=== PATIENT | female | born 1975 | race Caucasian/White ===

== ENCOUNTER → 2016-03-31 | Outpatient (CLI) | payer OTHER ==
--- NOTE | 2016-03-31 23:14 | MR ---
EXAMINATION TYPE: MR lumbar wo con DATE OF EXAM: 03/31/2016 8:52 PM COMPARISON: 08/21/2013 HISTORY: Mid/lower back pain, tingling lt arm, rt groin/leg pain T1 and T2 axial and sagittal images of the lumbar spine are submitted. There is no abnormal signal seen within the visualized spinal cord or paraspinal soft tissues. T12-L1: No focal disc herniation or significant disc bulge is evident. No spinal canal stenosis or ne ural foraminal stenosis is present. L1-L2: No focal disc herniation or significant disc bulge is evident. No spinal canal stenosis or puneet ral foraminal stenosis is present. L2-L3: No focal disc herniation or significant disc bulge is evident. No spinal canal stenosis or puneet ral foraminal stenosis is present. L3-L4: No focal disc herniation or significant disc bulge is evident. No spinal canal stenosis or puneet ral foraminal stenosis is present. L4-L5: Broad-based central disc bulging and hypertrophic change of the facets with mild effacement of thecal sac. Mild bilateral foraminal encroachment. L5-S1: No extruded disc fragments. No spinal canal stenosis. IMPRESSION: 1. L4-L5: Broad-based central disc bulging and hypertrophic change of the facets with mild effacement of thecal sac. Mild bilateral foraminal encroachment. EXAMINATION TYPE: MR thoracic spine wo con DATE OF EXAM: 03/31/2016 COMPARISON: 08/21/2013 HISTORY: Mid/lower back pain, tingling lt arm, rt groin/leg pain Standard multiplanar, multisequence MRI departmental protocol Multiplanar, multisequence images of the thoracic were acquired. FINDINGS: Alignment is anatomic. There is loss of disc signal space at T4-T5, T6-T7, T7-T8, and T8-T9. At T4-T5 there is a left paracentral disc protrusion broad-based with mild effacement of thecal sac b ut no spinal cord contact. However, there is mass effect upon the left anterior margin of the spinal cord secondary to the thecal sac compression. Neural foramina remain patent. At T6-T7 there is broad-based disc bulge or small protrusion with mild effacement of thecal sac but n o spinal cord contact. Neural foramina appear to be patent. At T7-T8 there is broad-based central disc protrusion. There is mass effect upon the thecal sac. Ther e does appear to be mild mass effect upon the right anterior spinal cord secondary to the compression of the thecal sac. No cord contact. Remaining levels demonstrate no disc herniation, canal stenosis, or foraminal encroachment. No abnormal signal seen within the visualized thoracic spinal cord. Within the lower cervical spinal cord is an area of abnormal signal at the C6-C7 level which is stable and compatible with previous re ported syrinx. Images are not included on the axial images of the thoracic spine IMPRESSION: 1. Disc protrusion at T4-T5, T6-T7, and T7-T8 mass effect upon the thecal sac. There is a degree of m ass effect upon the spinal cord at T4-T5 and T7-T8 as discussed above but no spinal cord contact. Fin dings at T4-T5 and T7-T8 is progressed from previous exam. 2. Abnormal signal within the lower cervical spinal cord which is not included on the axial images of the thoracic spine. Previous cervical spine MRI demonstrated evidence of a syrinx in this region whi ch could be followed with a MRI as clinically warranted
== END | disposition home or self-care (01) ==
LOC: RADMRIMAIN 19:52
PROVIDERS: ATTEND Psychiatry & Neurology Neurology
DX: M51.26 Other intervertebral disc displacement, lumbar region (principal); M51.24 Other intervertebral disc displacement, thoracic region
CPT/HCPCS: 72146; 72148

== ENCOUNTER 2017-01-29 11:11 | Observation (INO) | payer OTHER ==
[2017-01-29] MEDS ORDERED: KETOROLAC 30 MG/ML 1 ML VIAL IVP STA (11:32)
[2017-01-29] MEDS ORDERED: SODIUM CHLORIDE 0.9% 1,000 ML IV STA ×2 (11:32→15:09)
--- NOTE | 2017-01-29 11:35 | ED ---
SOB HPI - General Chief Complaint: Shortness of Breath Stated Complaint: pili following IV infusion x 3 days Time Seen by Provider: 01/29/17 11:23 Source: patient, family, RN notes reviewed Mode of arrival: ambulatory Limitations: no limitations - History of Present Illness Initial Comments: This is a 41-year-old female presents with complaints of chest heaviness and shortness of breath. She states she's received 3 IV injections of Solu-Medrol her neurologist is using apparently try to rule out MS. She states she started developing left-sided chest pain sharp and heaviness with some radiation to the left shoulder it feels like it is sharp initially gets worse with deep breathing attempts. It feels like someone sitting on her chest she states. She has a cough fevers chills nausea vomiting sweats or other symptoms. Patient has no prior history of heart or lung disease she is a ex-smoker. Patient did state that the pain as well as 6/10 at this time. MD Complaint: shortness of breath, chest pain - Related Data Home Medications Medication Instructions Recorded Confirmed Esomeprazole Magnesium [NexIUM] 40 mg PO DAILY 01/29/17 01/29/17 Morphine Sulfate ER [Ms Contin 30 mg PO Q12HR 01/29/17 01/29/17 30Mg] Polyethylene Glycol 3350 [Miralax] 17 gm PO DAILY PRN 01/29/17 01/29/17 Simvastatin [Zocor] 20 mg PO HS 01/29/17 01/29/17 Zonisamide [Zonegran] 200 mg PO HS 01/29/17 01/29/17 oxyCODONE-APAP 10-325MG [Percocet 1 tab PO BID 01/29/17 01/29/17 10-325 mg] Allergies Allergy/AdvReac Type Severity Reaction Status Date / Time Iodinated Contrast- Oral and Allergy Itching Verified 01/29/17 11:47 IV Dye Review of Systems ROS Statement: Those systems with pertinent positive or pertinent negative responses have been documented in the HPI. ROS Other: All systems not noted in ROS Statement are negative. Past Medical History Past Medical History: No Reported History History of Any Multi-Drug Resistant Organisms: C-DIFF Date of last positivie culture/infection: 2014 Past Surgical History: Breast Surgery, Tonsillectomy Past Psychological History: No Psychological Hx Reported Smoking Status: Former smoker Past Alcohol Use History: None Reported Past Drug Use History: None Reported General Exam - General Exam Comments Initial Comments: This is a well-developed well-nourished awake alert oriented 3 female Limitations: no limitations General appearance: alert, anxious Head exam: Present: atraumatic, normocephalic, normal inspection Eye exam: Present: normal appearance, PERRL, EOMI. Absent: scleral icterus, conjunctival injection, periorbital swelling ENT exam: Present: normal exam, mucous membranes moist Neck exam: Present: normal inspection. Absent: tenderness, meningismus, lymphadenopathy Respiratory exam: Present: normal lung sounds bilaterally. Absent: respiratory distress, wheezes, rales, rhonchi, stridor Cardiovascular Exam: Present: regular rate, normal rhythm, normal heart sounds. Absent: systolic murmur, diastolic murmur, rubs, gallop, clicks GI/Abdominal exam: Present: soft, normal bowel sounds. Absent: distended, tenderness, guarding, rebound, rigid Extremities exam: Present: normal inspection, full ROM, normal capillary refill. Absent: tenderness, pedal edema, joint swelling, calf tenderness Back exam: Present: normal inspection Neurological exam: Present: alert, oriented X3, CN II-XII intact Psychiatric exam: Present: normal affect, normal mood Skin exam: Present: warm, dry, intact, normal color. Absent: rash Course Vital Signs 01/29/17 01/29/17 01/29/17 11:15 12:25 12:26 Temperature 97.7 F Pulse Rate 50 L 42 L Respiratory 18 16 16 Rate Blood Pressure 124/57 O2 Sat by Pulse 100 100 Oximetry 01/29/17 01/29/17 01/29/17 12:52 13:55 14:43 Temperature Pulse Rate 51 L 40 L 50 L Respiratory 16 18 Rate Blood Pressure 133/69 147/71 146/67 O2 Sat by Pulse 100 100 Oximetry 01/29/17 01/29/17 14:48 15:08 Temperature Pulse Rate 55 L 50 L Respiratory 18 18 Rate Blood Pressure 119/62 105/58 O2 Sat by Pulse 99 97 Oximetry Medical Decision Making - Medical Decision Making Patient persisted having retrosternal chest pressure. Nitroglycerin did seem to help. Patient has symptoms consistent with angina. She will be admitted for cardiology consultation. The case will be discussed with Dr. Carlson who is covering Dr. Griffin. - Lab Data Result diagrams: 01/29/17 12:00 01/29/17 12:00 Lab Results 01/29/17 01/29/17 01/29/17 Range/Units 12:00 12:00 12:00 WBC 11.0 H (3.8-10.6) k/uL RBC 4.27 (3.80-5.40) m/uL Hgb 12.8 (11.4-16.0) gm/dL Hct 37.0 (34.0-46.0) % MCV 86.6 (80.0-100.0) fL MCH 29.9 (25.0-35.0) pg MCHC 34.5 (31.0-37.0) g/dL RDW 13.2 (11.5-15.5) % Plt Count 204 (150-450) k/uL Neutrophils % 50 % Lymphocytes % 44 % Monocytes % 5 % Eosinophils % 1 % Basophils % 0 % Neutrophils # 5.5 (1.3-7.7) k/uL Lymphocytes # 4.8 (1.0-4.8) k/uL Monocytes # 0.5 (0-1.0) k/uL Eosinophils # 0.1 (0-0.7) k/uL Basophils # 0.0 (0-0.2) k/uL PT (9.0-12.0) sec INR (<1.2) APTT (22.0-30.0) sec D-Dimer (<0.60) mg/L FEU Sodium 139 (137-145) mmol/L Potassium 3.5 (3.5-5.1) mmol/L Chloride 112 H (98-107) mmol/L Carbon Dioxide 21 L (22-30) mmol/L Anion Gap 6 mmol/L BUN 16 (7-17) mg/dL Creatinine 0.69 (0.52-1.04) mg/dL Est GFR (MDRD) Af Amer >60 (>60 ml/min/1.73 sqM) Est GFR (MDRD) Non-Af >60 (>60 ml/min/1.73 sqM) Glucose 90 (74-99) mg/dL Calcium 8.9 (8.4-10.2) mg/dL Magnesium 1.8 (1.6-2.3) mg/dL Total Bilirubin 0.3 (0.2-1.3) mg/dL AST 32 (14-36) U/L ALT 104 H (9-52) U/L Alkaline Phosphatase 40 (38-126) U/L Total Creatine Kinase 25 L (30-135) U/L CK-MB (CK-2) 0.3 (0.0-2.4) ng/mL CK-MB (CK-2) Rel Index 1.2 Troponin I <0.012 (0.000-0.034) ng/mL NT-Pro-B Natriuret Pep pg/mL Total Protein 5.5 L (6.3-8.2) g/dL Albumin 3.0 L (3.5-5.0) g/dL 01/29/17 01/29/17 Range/Units 12:00 12:00 WBC (3.8-10.6) k/uL RBC (3.80-5.40) m/uL Hgb (11.4-16.0) gm/dL Hct (34.0-46.0) % MCV (80.0-100.0) fL MCH (25.0-35.0) pg MCHC (31.0-37.0) g/dL RDW (11.5-15.5) % Plt Count (150-450) k/uL Neutrophils % % Lymphocytes % % Monocytes % % Eosinophils % % Basophils % % Neutrophils # (1.3-7.7) k/uL Lymphocytes # (1.0-4.8) k/uL Monocytes # (0-1.0) k/uL Eosinophils # (0-0.7) k/uL Basophils # (0-0.2) k/uL PT 12.4 H (9.0-12.0) sec INR 1.2 H (<1.2) APTT 22.5 (22.0-30.0) sec D-Dimer 1.41 H (<0.60) mg/L FEU Sodium (137-145) mmol/L Potassium (3.5-5.1) mmol/L Chloride (98-107) mmol/L Carbon Dioxide (22-30) mmol/L Anion Gap mmol/L BUN (7-17) mg/dL Creatinine (0.52-1.04) mg/dL Est GFR (MDRD) Af Amer (>60 ml/min/1.73 sqM) Est GFR (MDRD) Non-Af (>60 ml/min/1.73 sqM) Glucose (74-99) mg/dL Calcium (8.4-10.2) mg/dL Magnesium (1.6-2.3) mg/dL Total Bilirubin (0.2-1.3) mg/dL AST (14-36) U/L ALT (9-52) U/L Alkaline Phosphatase (38-126) U/L Total Creatine Kinase (30-135) U/L CK-MB (CK-2) (0.0-2.4) ng/mL CK-MB (CK-2) Rel Index Troponin I (0.000-0.034) ng/mL NT-Pro-B Natriuret Pep 546 pg/mL Total Protein (6.3-8.2) g/dL Albumin (3.5-5.0) g/dL - EKG Data -: EKG Interpreted by Me EKG shows normal: sinus rhythm (Sinus bradycardia rate of 40. Ago 122 QRS 90 QT since QTC of 456/[address]-T wave changes seen) - Radiology Data Radiology results: report reviewed (I did review the imaging and reports no acute findings no evidence of PE.), image reviewed Disposition Clinical Impression: Unstable angina, Chest pain Disposition: ADMITTED IP TO THIS [facility] Condition: Stable Referrals: Vahid Griffin DO [Primary Care Provider] - 1-2 days
[2017-01-29] MEDS ORDERED: ASPIRIN 81 MG PO STA (11:36)
[2017-01-29 12:16] LABS: Basophils % (A) 0 %; CH 29.5; CHCM 34.3; Eosinophils # (A) 0.1 k/uL (0-0.7); Eosinophils % (A) 1 %; HDW 2.56; HGB 12.8 gm/dL (11.4-16.0); Luc % (Auto) 1; Lymphocytes # (A) 4.8 k/uL (1.0-4.8); Lymphocytes % (A) 44 %; MCH 29.9 pg (25.0-35.0); MCHC 34.5 g/dL (31.0-37.0); MCV 86.6 fL (80.0-100.0); Mean Platelet Volume 7.3; Monocytes # (A) 0.5 k/uL (0-1.0); Monocytes % (A) 5 %; Neutrophils # (A) 5.5 k/uL (1.3-7.7); Neutrophils % (A) 50 %; RBC 4.27 m/uL (3.80-5.40); RDW 13.2 % (11.5-15.5); WBC (Perox) 10.99
[2017-01-29 12:27] LABS: INR 1.2 (<1.2); Partial Thromboplastin Time 22.5 sec (22.0-30.0); Prothrombin Time 12.4 sec (9.0-12.0)
--- NOTE | 2017-01-29 12:29 | XR ---
EXAMINATION TYPE: XR chest 2V DATE OF EXAM ORDERED: 01/29/2017 HISTORY: difficulty breathing. REFERENCE: Previous study dated 06/16/2010. FINDINGS: The lungs are clear. Pleural spaces are clear. Heart size is normal. IMPRESSION: NORMAL CHEST.
[2017-01-29 12:30] LABS: ALT 104 U/L (9-52); AST 32 U/L (14-36); Alkaline Phosphatase 40 U/L (38-126); Anion Gap 6 mmol/L; Blood Urea Nitrogen 16 mg/dL (7-17); Calcium 8.9 mg/dL (8.4-10.2); Carbon Dioxide 21 mmol/L (22-30); Chloride 112 mmol/L (98-107); Glucose 90 mg/dL (74-99); Magnesium 1.8 mg/dL (1.6-2.3); Non-African American GFR(MDRD) >60 (>60 ml/min/1.73 sqM); Potassium 3.5 mmol/L (3.5-5.1); Sodium 139 mmol/L (137-145); Total Bilirubin 0.3 mg/dL (0.2-1.3); Total Protein 5.5 g/dL (6.3-8.2)
[2017-01-29 12:35] LABS: Creatine Kinase 25 U/L (30-135)
[2017-01-29 12:48] LABS: Creatine Kinase MB 0.3 ng/mL (0.0-2.4); Troponin I <0.012 ng/mL (0.000-0.034)
[2017-01-29] MEDS ORDERED: FAMOTIDINE 20 MG/2 ML VIAL IV STA (13:08)
[2017-01-29] MEDS ORDERED: methylPREDNISolone SOD SUCCI 125 MG/2 ML VIAL IV STA (13:08)
[2017-01-29] MEDS ORDERED: diphenhydrAMINE 50 MG/ML 1 ML VIAL IVP STA (13:08)
[2017-01-29] MEDS ORDERED: RX INFO: IV CONTRAST WAS GIVEN 1 EACH MISC MISCELLANE PRN (13:09)
--- NOTE | 2017-01-29 14:03 | CT ---
EXAMINATION TYPE: CT angio chest DATE OF EXAM: 01/29/2017 1:50 PM COMPARISON: There are small, bilateral pleural effusions, greater on the right than the left. There i s minimal dependent atelectasis within the dependent portions of the lungs. There is no significant axillary, internal mammary, mediastinal or hilar adenopathy. There is no evidence of pulmonary embolus. The aorta is normal in caliber without evidence of dissection. There is no pericardial fluid. The heart is mildly enlarged. Visualized portions of the upper abdomen are normal. There is minimal hypertrophic spondylosis within the spine. HISTORY: 1. This examination is negative for pulmonary embolus. 2. Small, bilateral pleural effusions, greater on the right than the left. 3. Mild cardiomegaly. 4. Mild degenerative change within the spine. CT DLP: mGycm Automated exposure control for dose reduction was used. CONTRAST: CTA scan of the thorax is performed , patient injected with mL of , pulmonary embolism protocol. . FINDINGS: LUNGS: The lungs are grossly clear, there is no concerning parenchymal mass or nodule identified. T here is no pleural effusion or pneumothorax seen. The tracheobronchial tree is patent. MEDIASTINUM: There is satisfactory enhancement of the pulmonary artery and its branches, there is no CT evidence for pulmonary embolism. There are no greater than 1 cm hilar or mediastinal lymph nodes. No pericardial effusion is seen. OTHER: No additional significant abnormality is seen. IMPRESSION:
[2017-01-29] MEDS: NITROGLYCERIN SL TABS 0.4 MG TAB SUBLINGUAL PRN ×2 (14:42→14:48)
[2017-01-29] MEDS ORDERED: NITROGLYCERIN OINT 1 INCH/GM PACKET TOPICAL STA (15:09)
[2017-01-29] MEDS ORDERED: NITROGLYCERIN SL TABS 0.4 MG TAB SUBLINGUAL PRN (15:52)
[2017-01-29] MEDS ORDERED: POLYETHYLENE GLYCOL 3350 17 GM POWD.PACK PO PRN (15:54)
[2017-01-29] MEDS ORDERED: HEPARIN SODIUM,PORCINE 5,000 UNIT/ML 1 ML VIAL IV ONE (15:57)
[2017-01-29] MEDS ORDERED: HEPARIN SODIUM,PORCINE/D5W PMX 25,000 UNIT in DEXTROSE/WATER 1 500ML.BAG IV SCH (16:00)
[2017-01-29] MEDS ORDERED: SODIUM CHLORIDE 0.9% 1,000 ML IV SCH (16:00)
[2017-01-29 16:58] VITALS: BMI 28.9
[2017-01-29] MEDS: MORPHINE SULFATE ER 30 MG TABLET PO SCH (18:32)
[2017-01-29] MEDS: NITROGLYCERIN OINT 1 INCH/GM PACKET TOPICAL SCH (18:34)
[2017-01-29 18:54] LABS: Creatine Kinase 22 U/L (30-135)
[2017-01-29 19:08] LABS: Creatine Kinase MB 0.2 ng/mL (0.0-2.4); Troponin I <0.012 ng/mL (0.000-0.034)
--- NOTE | 2017-01-29 19:14 | HP ---
HISTORY AND PHYSICAL I am covering for Dr. Griffin. DATE OF ADMISSION: 01/29/17 CHIEF COMPLAINT: Chest pain. HISTORY: This 41-year-old woman with a past medical history of multiple medical problems including chronic back pain, history of C diff, history of breast surgery, tonsillectomy, being followed by Dr. Griffin in the outpatient setting complaining of chest pain. The patient had a heavy feeling of the chest, pressure type of pain with like somebody sitting on the chest on the anterior part of the chest and the pain radiated to the left shoulder. Initially it was sharp in character, but subsequently patient had shortness of breath and because of the continued symptoms, patient came to [facility] and was admitted for further evaluation and treatment. The initial troponin was found to be negative and the EKG done showed sinus bradycardia with some ST-T changes. A D-dimer was found to be 1.41. The patient also underwent a CT angiography which showed no pulmonary embolism and small bilateral pleural effusions also noted. Mild DJD of the spine is also noted. There is no history of fever, rigors. No history of headache, loss of consciousness or seizures. PAST MEDICAL HISTORY: History of chronic back pain, history of breast surgery. MEDICATIONS: Prior to admission include: 1. Hydrocodone 10 mg b.i.d. 2. Zonegran 200 mg q.h.s. 3. Zocor 20 mg q.h.s. 4. MiraLAX 17 g daily p.r.n. 5. MS Contin 30 mg p.o. b.i.d. 6. Nexium 40 mg p.o. daily. ALLERGIES: IODINATED CONTRAST DYE. FAMILY HISTORY: History of diabetes and heart disease in the family. SOCIAL HISTORY: Previous history of smoking. No history of alcohol intake. REVIEW OF SYSTEMS: ENT: No diminished vision, no diminished hearing. Cardiovascular as mentioned earlier. Respirations as mentioned earlier. GI no nausea or vomiting. no dysuria or retention. Nervous system: No numbness or weakness. Allergy/Immunology: No asthma or hayfever. Musculoskeletal; as mentioned earlier. Hematology/Oncology: No history of anemia. Endocrine no history of diabetes or hypothyroidism. Constitutional: As mentioned earlier. Dermatology: Negative. Rheumatology: Negative. Psychiatric : As mentioned earlier. PHYSICAL EXAM: Patient is alert, oriented x3. The pulse is 42, blood pressure 109/61, respiratory rate 14, temperature 98 degrees, pulse ox 98% room air. HEENT: Conjunctivae normal. Oral mucosa moist. Neck is no jugular venous distention. No carotid bruit. No lymph node enlargement. Cardiovascular system: S1, S2 muffled. No S3, no S4. Respiratory: Breath sounds diminished in the bases. No rhonchi. No crackles. ABDOMEN: Soft, nontender. No mass palpable. Legs no edema and no swelling. NERVOUS SYSTEM: Higher functions as mentioned. Moves all 4 limbs. No focal motor or sensory deficits. Lymphatics: No lymph nodes palpable in the neck, axillae or groin. Skin no ulcer, rash or bleeding. LABS: WBC 11, hemoglobin 12.8, INR is 1.2, and CO2 is 21 and ALT is 104 and AST is 32 ASSESSMENT: 1. Chest pain possible unstable angina. 2. Sinus bradycardia. 3. Increased WBC. 4. Increased ALT. 5. History of back pain. 6. History of Clostridium difficile colitis. 7. Small bilateral pleural effusion on the CTA. RECOMMENDATIONS AND DISCUSSION: In this 41-year-old woman who presented with multiple complex medical issues, we will monitor the patient closely, continue the current management and symptomatic treatment. Otherwise at this time, I recommend continue the current medications. Rule out myocardial infarction. Unstable angina protocol. Cardiology consultation. Dr. Griffin will follow. Further followup regarding the above-mentioned medical issues as outpatient. Discussed with the patient who understands and agrees. MMODL / IJN: [id number] / MTDD
[2017-01-29 19:57] VITALS: RESP 18
[2017-01-29 20:52] LABS: Appearance,Urine Clear (Clear); Bilirubin,Urine Negative (Negative); Glucose,Urine (UA) Negative (Negative); Ketones,Urine Negative (Negative); Leukocyte Esterase,Urine Negative (Negative); Nitrite,Urine Negative (Negative); PH, Urine 7.5 (5.0-8.0); Protein,Urine Negative (Negative); Specific Gravity,Urine 1.015 (1.001-1.035); UA Billing (MACRO vs. MICRO) CHEM; Urobilinogen,Urine <2.0 mg/dL (<2.0)
[2017-01-29] MEDS ORDERED: ATORVASTATIN 10 MG TAB PO SCH (21:00)
[2017-01-29] MEDS ORDERED: ZONISAMIDE 100 MG CAP PO SCH (21:00)
[2017-01-29] MEDS: oxyCODONE-APAP 10-325MG 1 EACH TAB PO SCH (23:06)
[2017-01-30 01:26] LABS: Creatine Kinase 22 U/L (30-135)
[2017-01-30 01:37] LABS: Creatine Kinase MB <0.2 ng/mL (0.0-2.4); Troponin I <0.012 ng/mL (0.000-0.034)
[2017-01-30] MEDS: NITROGLYCERIN OINT 1 INCH/GM PACKET TOPICAL SCH ×2 (04:06→05:18)
[2017-01-30] MEDS: MORPHINE SULFATE ER 30 MG TABLET PO SCH (05:03)
[2017-01-30 05:52] LABS: Basophils % (A) 0 %; CH 29.3; CHCM 33.6; Eosinophils % (A) 0 %; HCT 35.4 % (34.0-46.0); HDW 2.54; HGB 11.7 gm/dL (11.4-16.0); Luc # (Auto) 0.11; Luc % (Auto) 1; Lymphocytes # (A) 2.9 k/uL (1.0-4.8); Lymphocytes % (A) 22 %; MCHC 33.1 g/dL (31.0-37.0); MCV 87.6 fL (80.0-100.0); Mean Platelet Volume 7.3; Monocytes # (A) 0.9 k/uL (0-1.0); Monocytes % (A) 7 %; Neutrophils # (A) 9.3 k/uL (1.3-7.7); Neutrophils % (A) 70 %; RBC 4.04 m/uL (3.80-5.40); RDW 13.2 % (11.5-15.5); WBC 13.2 k/uL (3.8-10.6); WBC (Perox) 13.57
[2017-01-30 06:40] LABS: Anion Gap 5 mmol/L; Blood Urea Nitrogen 13 mg/dL (7-17); Calcium 8.7 mg/dL (8.4-10.2); Carbon Dioxide 24 mmol/L (22-30); Chloride 110 mmol/L (98-107); Cholesterol 136 mg/dL (<200); Glucose 100 mg/dL (74-99); HDL Cholesterol 55 mg/dL (40-60); Non-African American GFR(MDRD) >60 (>60 ml/min/1.73 sqM); Potassium 3.7 mmol/L (3.5-5.1); Sodium 139 mmol/L (137-145)
[2017-01-30] MEDS ORDERED: PANTOPRAZOLE 40 MG TABLET PO SCH (07:30)
[2017-01-30] MEDS ORDERED: ASPIRIN 325 MG TAB PO SCH (09:00)
--- NOTE | 2017-01-30 09:35 | XR ---
EXAMINATION TYPE: XR chest 1V portable DATE OF EXAM: 01/30/2017 COMPARISON: 01/29/2017 HISTORY: Chest pain TECHNIQUE: Single frontal view of the chest is obtained. FINDINGS: No focal infiltrate is identified. Blunting of the right costophrenic angle is felt to reflect small effusion. The cardiac silhouette size is within normal limits. The osseous structures are intact. IMPRESSION: 1. Small right-sided effusion suspected.
--- NOTE | 2017-01-30 09:53 | P.PN ---
Subjective Progress Note Date: 01/30/17 41 year old female who presented to the emergency room on 01/29/2017 with a chief complaint of chest pain. The patient's EKG completed in the emergency room showed sinus bradycardia with a rate in the 40s. Her d-dimer was elevated at 1.41. She underwent a CT of the chest which was negative for pulmonary embolism but did show small bilateral pleural effusions. The patient was seen and examined at the bedside on rounds with Dr. Griffin. She states she has been undergoing workup for possible MS and has had high-dose steroids for the last 3 days per her neurologist. She started having chest pain that she describes as "squeezing" on the left side of her chest that wraps around to the left side of her back. The pain is not reproducible upon palpation. She states there is nothing that makes it better or worse. She states she is unable to lay down because the pain intensifies when she is supine. She states that she feels like she is unable to take a deep breath. She remains on 2 L nasal cannula and is maintaining oxygen saturation greater than 92%. The patient remains bradycardic with a rate ranging from 38-56 overnight. Troponins were negative 3. Lipid panel reveals triglycerides of 66 , cholesterol 136, LDL 68, and HDL 55. An echo was completed and results are currently pending. Consultations have been placed to cardiology for further workup. Objective - Vital Signs Vital signs: Vital Signs Temp 97.5 F L 01/30/17 07:45 Pulse 56 L 01/30/17 07:45 Resp 18 01/30/17 07:45 BP 140/68 01/30/17 07:45 Pulse Ox 100 01/30/17 09:25 Intake & Output 01/29/17 01/30/17 01/30/17 18:59 06:59 18:59 Intake Total 1080 Balance 1080 Weight 76.4 kg Intake: Intake, IV Titration 480 Amount Heparin Sodium,Porcine/ 240 D5w Pmx 25,000 unit In Dextrose/Water 1 500ml. bag @ 12 UNITS/KG/HR 17. 96 mls/hr IV .Q24H JASSON Rx #:[id number] Sodium Chloride 0.9% 1, 240 000 ml @ 20 mls/hr IV . Q24H JASSON Rx#:[id number] Oral 600 Other: Voiding Method Toilet Toilet # Voids 2 - Exam GENERAL: This is a 41-year-old female in no apparent distress at the time of examination. Pleasant and cooperative. HEENT: Head is atraumatic, normocephalic. Pupils are equal, round, and reactive to light. Sclerae anicteric. Conjunctivae are clear. Mucus membranes of the mouth are moist. Neck is supple. RESPIRATORY: Clear to ausculation. No wheezes, rales, or rhonchi. No use of accessory muscles. Patient maintaining oxygen saturation greater than 92% on 2 L nasal cannula. No chest wall tenderness is noted on palpation or with deep breathing. CARDIOVASCULAR: Regular rate and rhythm. Bradycardic. S1 and S2 noted. No systolic or diastolic murmur auscultated. No JVD noted. No S3 or S4 noted. GASTROINTESTINAL: No distention noted. Abdomen soft and round. Normal active bowel sounds auscultated X 4 quadrants. No pain or tenderness noted upon palpation. INTEGUMENTARY: No cyanosis. No jaundice. No rashes noted. No cellulitis noted. EXTREMITIES: 2+ peripheral pulses. No evidence of peripheral edema. No calf tenderness noted. NEUROLOGIC: Cranial nerves II-XII intact. PSYCHIATRIC: Awake, alert, and oriented X 3. Appropriate affect. Intact judgement and insight. - Labs CBC & Chem 7: 01/30/17 05:28 01/30/17 05:28 Labs: Abnormal Lab Results - Last 24 Hours (Table) 01/29/17 01/29/17 01/29/17 Range/Units 12:00 12:00 12:00 WBC 11.0 H (3.8-10.6) k/uL Neutrophils # (1.3-7.7) k/uL PT (9.0-12.0) sec INR (<1.2) APTT (22.0-30.0) sec D-Dimer (<0.60) mg/L FEU Chloride 112 H (98-107) mmol/L Carbon Dioxide 21 L (22-30) mmol/L Glucose (74-99) mg/dL ALT 104 H (9-52) U/L Total Creatine Kinase 25 L (30-135) U/L Total Protein 5.5 L (6.3-8.2) g/dL Albumin 3.0 L (3.5-5.0) g/dL 01/29/17 01/29/17 01/30/17 Range/Units 12:00 18:24 00:44 WBC (3.8-10.6) k/uL Neutrophils # (1.3-7.7) k/uL PT 12.4 H (9.0-12.0) sec INR 1.2 H (<1.2) APTT (22.0-30.0) sec D-Dimer 1.41 H (<0.60) mg/L FEU Chloride (98-107) mmol/L Carbon Dioxide (22-30) mmol/L Glucose (74-99) mg/dL ALT (9-52) U/L Total Creatine Kinase 22 L 22 L (30-135) U/L Total Protein (6.3-8.2) g/dL Albumin (3.5-5.0) g/dL 01/30/17 01/30/17 01/30/17 Range/Units 00:44 05:28 05:28 WBC 13.2 H (3.8-10.6) k/uL Neutrophils # 9.3 H (1.3-7.7) k/uL PT (9.0-12.0) sec INR (<1.2) APTT 51.7 H (22.0-30.0) sec D-Dimer (<0.60) mg/L FEU Chloride 110 H (98-107) mmol/L Carbon Dioxide (22-30) mmol/L Glucose 100 H (74-99) mg/dL ALT (9-52) U/L Total Creatine Kinase (30-135) U/L Total Protein (6.3-8.2) g/dL Albumin (3.5-5.0) g/dL Assessment and Plan Plan: ASSESSMENT: Chest pain, present on admission, troponins negative 3, possible unstable angina Elevated d-dimer, CT chest negative for pulmonary emboli but noted to have small bilateral pleural effusions Sinus bradycardia, asymptomatic Chronic back pain with recent high-dose steroid infusions for pain control and possible multiple sclerosis History of ulcerative colitis History of Clostridium difficile History of tobacco abuse, in remission, patient quit smoking cigarettes in 2010 PLAN: -Await further recommendations from cardiology -Await echo results -Monitor heart rate and blood pressure -Monitor telemetry -Continue heparin drip -Wean oxygen as tolerated -Home meds as appropriate -Monitor labs -GI prophylaxis: Protonix 40 mg by mouth daily -DVT prophylaxis: Patient currently on heparin drip -Discharge planning: Patient to return home when stable Nurse practitioner note has been reviewed by physician. Signing provider agrees with the documented findings, assessment, and plan of care.
--- NOTE | 2017-01-30 11:21 | ECHOF ---
Referral Reason:chest pain MEASUREMENTS -------- HEIGHT: 162.6 cm WEIGHT: 76.2 kg BP: 100/56 RVIDd: 3.0 cm (< 3.3) IVSd: 1.0 cm (0.6 - 1.1) LVIDd: 4.1 cm (3.9 - 5.3) LVPWd: 0.9 cm (0.6 - 1.1) IVSs: 1.2 cm LVIDs: 2.9 cm LVPWs: 1.4 cm LA Diam: 3.2 cm (2.7 - 3.8) LAESV Index (A-L): 24.96 ml/m Ao Diam: 3.0 cm (2.0 - 3.7) AV Cusp: 2.2 cm (1.5 - 2.6) MV EXCURSION: 17.484 mm (> 18.000) MV EF SLOPE: 212 mm/s (70 - 150) EPSS: 0.2 cm MV E Moustapha: 1.27 m/s MV DecT: 177 ms MV A Moustapha: 0.74 m/s MV E/A Ratio: 1.72 RAP: 5.00 mmHg RVSP: 23.28 mmHg FINDINGS -------- Resting bradycardia (HR<60bpm). This was a technically good study. The left ventricular size is normal. Left ventricular wall thickness is normal. Overall left vent ricular systolic function is normal with, an EF between 60 - 65 %. The right ventricle is normal in size. Normal LA size by volume 22+/-6 ml/m2. The right atrium is normal in size. The aortic valve is trileaflet and appears structurally normal. Mild mitral annular calcification present. There is trace mitral regurgitation. Mild tricuspid regurgitation present. Right ventricular systolic pressure is normal at < 35 mmHg. Trace/mild (physiologic) pulmonic regurgitation. The aortic root size is normal. The inferior vena cava is dilated with poor inspiratory collapse which is consistent with estimated r ight atrial pressure of 15 mmHg. There is no pericardial effusion. CONCLUSIONS -------- 1. Resting bradycardia (HR<60bpm). 2. This was a technically good study. 3. The left ventricular size is normal. 4. Left ventricular wall thickness is normal. 5. Overall left ventricular systolic function is normal with, an EF between 60 - 65 %. 6. The right ventricle is normal in size. 7. Normal LA size by volume 22+/-6 ml/m2. 8. The right atrium is normal in size. 9. The aortic valve is trileaflet and appears structurally normal. 10. Mild mitral annular calcification present. 11. There is trace mitral regurgitation. 12. Mild tricuspid regurgitation present. 13. Right ventricular systolic pressure is normal at < 35 mmHg. 14. Trace/mild (physiologic) pulmonic regurgitation. 15. The aortic root size is normal. 16. The inferior vena cava is dilated with poor inspiratory collapse which is consistent with estimat ed right atrial pressure of 15 mmHg. 17. There is no pericardial effusion. HOME CARE ADMINISTRATOR: Arielle Hardwick RDCS
[2017-01-30] MEDS: oxyCODONE-APAP 10-325MG 1 EACH TAB PO SCH (11:24)
--- NOTE | 2017-01-30 11:43 | ECHOS ---
STRESS ECHOCARDIOGRAM DATE OF SERVICE: 01/30/2017 INDICATIONS: MEDICATIONS:: Oxycodone, simvastatin, morphine, esomeprazole. BASELINE HEART RATE: 67 BASELINE BLOOD PRESSURE: 117/68 MAXIMUM HEART RATE: 151 MAXIMUM BLOOD PRESSURE: 154/46 85% MPHR: 154 100% MPHR: 181 METS: 11.8 MAXIMUM STAGE REACHED: IV TOTAL EXERCISE TIME: 10 minutes CLINICAL INFORMATION: Patient was exercised for a total period of 10 minutes. The peak heart rate of 151 was achieved, maximum blood pressure of 154/46 mmHg was noted. Her resting EKG shows normal sinus rhythm with normal IN interval and QRS duration and normal ST-T waves. No ST-segment depression suggestive of ischemia was noted. The baseline echocardiographic images reveal normal left ventricular chamber size with normal left ventricular systolic function. In the immediate postexercise period, normal increase in the wall thickness and contractility is noted. FINAL IMPRESSION: This stress echocardiographic study is negative for stress-induced ischemia. The patient's exercise tolerance is normal. No dysrhythmias are noted. MMODL / IJN: [id number] /
[2017-01-30 12:13] VITALS: BP 119/57; PULSE 58; TEMP 98.2
--- NOTE | 2017-01-30 13:37 | P.DS ---
Providers Date of admission: 01/29/17 15:52 Expected date of discharge: 01/30/17 Attending physician: Vahid Griffin Consults: 01/29/17 15:52 Consult Physician Urgent Consulting Provider: Ian Calderon Consult Reason/Comments: Chest pain Do you want consulting provider notified?: Yes Primary care physician: Vahid [facility] Course: 41 year old female who presented to the emergency room on 01/29/2017 with a chief complaint of chest pain. The patient's EKG completed in the emergency room showed sinus bradycardia with a rate in the 40s. Her d-dimer was elevated at 1.41. She underwent a CT of the chest which was negative for pulmonary embolism but did show small bilateral pleural effusions. The patient was seen and examined at the bedside on rounds with Dr. Griffin. She states she has been undergoing workup for possible MS and has had high-dose steroids for the last 3 days per her neurologist. She started having chest pain that she describes as "squeezing" on the left side of her chest that wraps around to the left side of her back. The pain is not reproducible upon palpation. She states there is nothing that makes it better or worse. She states she is unable to lay down because the pain intensifies when she is supine. She states that she feels like she is unable to take a deep breath. She remains on 2 L nasal cannula and is maintaining oxygen saturation greater than 92%. The patient remains bradycardic with a rate ranging from 38-56 overnight. Troponins were negative 3. Lipid panel reveals triglycerides of 66 , cholesterol 136, LDL 68, and HDL 55. An echo was completed which revealed EF 60-65%, trace mitral regurgitation, mild tricuspid regurgitation. She underwent stress testing today which was found to be negative per cardiology PSYCHIATRIC ARNP, Tammie Wagner. The patient is stable for DC and may follow up with Dr. Griffin outpatient. No need for cardiology follow up per LANDEN Cho DISCHARGE DIAGNOSIS Chest pain, present on admission, troponins negative 3, stress testing negative , Echo shows EF 60-65%, trace mitral regurgitation, mild tricuspid regurgitation Elevated d-dimer, CT chest negative for pulmonary emboli but noted to have small bilateral pleural effusions Sinus bradycardia, asymptomatic, improving Chronic back pain with recent high-dose steroid infusions for pain control and possible multiple sclerosis History of ulcerative colitis History of Clostridium difficile History of tobacco abuse, in remission, patient quit smoking cigarettes in 2010 Nurse practitioner note has been reviewed by physician. Signing provider agrees with the documented findings, assessment, and plan of care. Patient Condition at Discharge: Stable Plan - Discharge Summary New Discharge Prescriptions: Continue oxyCODONE-APAP 10-325MG [Percocet 10-325 mg] 1 tab PO BID Zonisamide [Zonegran] 200 mg PO HS Simvastatin [Zocor] 20 mg PO HS Morphine Sulfate ER [Ms Contin] 30 mg PO Q12HR Esomeprazole Magnesium [NexIUM] 40 mg PO DAILY Polyethylene Glycol 3350 [Miralax] 17 gm PO DAILY PRN PRN Reason: Constipation Discharge Medication List Esomeprazole Magnesium [NexIUM] 40 mg PO DAILY 01/29/17 [History] Morphine Sulfate ER [Ms Contin] 30 mg PO Q12HR 01/29/17 [History] Polyethylene Glycol 3350 [Miralax] 17 gm PO DAILY PRN 01/29/17 [History] Simvastatin [Zocor] 20 mg PO HS 01/29/17 [History] Zonisamide [Zonegran] 200 mg PO HS 01/29/17 [History] oxyCODONE-APAP 10-325MG [Percocet 10-325 mg] 1 tab PO BID 01/29/17 [History] Follow up Appointment(s)/Referral(s): Vahid Griffni DO [Primary Care Provider] - 1-2 days Discharge Disposition: HOME SELF-CARE
--- NOTE | 2017-01-30 13:42 | P.CRDCN ---
History of Present Illness Consult date: 01/30/17 History of present illness: This is a 41-year-old female patient past medical history significant for high cholesterol. She also suffers from chronic thoracic back pain and is currently being evaluated by a neurologist to rule out MS. She recently underwent a three-day infusion of steroids Monday, and Monday of last week. After the third day she developed heavy pressure type chest pain on the left side of the chest that radiated into the left shoulder, arm and flank/ thoracic area. She says this is associated with dizziness and shortness of breath. The shortness of breath is worse when she lays flat and she has been requiring sitting up on multiple pillows. The pain is worse when she lays flat as well. If she sits up the pain almost entirely goes away except for in the flank region. At the time of my exam she is seen sitting up in bed in no acute distress. She denies symptoms of chest pain, shortness of breath, dizziness, palpitations, nausea or vomiting. EKG reveals sinus bradycardia with nonspecific flattened T-wave abnormalities in inferior leads with a Q-wave. There is no old for comparison. Cardiac enzymes negative x3. D-dimer 1.41 with negative CTA for PE. Current cardiac medications include simvastatin 20 mg daily. Review of Systems CONSTITUTIONAL: Denies fever. Denies chills. EYES: Denies blurred vision. Denies vision changes. Denies eye pain. EARS, NOSE, MOUTH & THROAT: Denies headache. Denies sore throat. Denies ear pain. CARDIOVASCULAR: Complains of one episode of chest pain with shortness of breath and dizziness, resolved. Denies orthopnea. Denies PND. Denies palpitations. RESPIRATORY: Denies cough. GASTROINTESTINAL: Denies abdominal pain. Denies diarrhea. Denies constipation. Denies nausea. Denies vomiting. MUSCULOSKELETAL: Denies myalgias. INTEGUMENTARY: Denies pruitis. Denies rash. NEUROLOGIC: Denies numbness. Denies tingling. Denies weakness. PSYCHIATRIC: Denies anxiety. Denies depression. ENDOCRINE: Denies fatigue. Denies weight change. Denies polydipsia. Denies polyurina. GENITOURINARY: Denies burning, hematuria or urgency with micturation. HEMATOLOGIC: Denies history of anemia. Denies bleeding. Past Medical History Past Medical History: No Reported History Additional Past Medical History / Comment(s): chronic back pain- pt recieving infusions and rule out MS. History of Any Multi-Drug Resistant Organisms: C-DIFF Date of last positivie culture/infection: 2014 MDRO Source:: stool Past Surgical History: Breast Surgery, Tonsillectomy Additional Past Surgical History / Comment(s): lumpectomy Past Anesthesia/Blood Transfusion Reactions: No Reported Reaction Past Psychological History: No Psychological Hx Reported Smoking Status: Former smoker Past Alcohol Use History: None Reported Additional Past Alcohol Use History / Comment(s): stopped smoking in 2010. pt states she was smoking half a pack to a pack a day. Past Drug Use History: None Reported - Past Family History Father Family Medical History: Diabetes Mellitus Additional Family Medical History / Comment(s): heart disease. at 22 from car accident. Mother Family Medical History: No Reported History Medications and Allergies Home Medications Medication Instructions Recorded Confirmed Type Esomeprazole Magnesium [NexIUM] 40 mg PO DAILY 01/29/17 01/29/17 History Morphine Sulfate ER [Ms Contin 30 mg PO Q12HR 01/29/17 01/29/17 History 30Mg] Polyethylene Glycol 3350 [Miralax] 17 gm PO DAILY PRN 01/29/17 01/29/17 History Simvastatin [Zocor] 20 mg PO HS 01/29/17 01/29/17 History Zonisamide [Zonegran] 200 mg PO HS 01/29/17 01/29/17 History oxyCODONE-APAP 10-325MG [Percocet 1 tab PO BID 01/29/17 01/29/17 History 10-325 mg] Allergies Allergy/AdvReac Type Severity Reaction Status Date / Time Iodinated Contrast- Oral and Allergy Itching Verified 01/29/17 11:47 IV Dye Physical Exam Vitals: Vital Signs Temp Pulse Pulse Resp BP BP BP 01/30/17 07:45 97.5 F L 56 L 18 140/68 01/30/17 04:00 97.9 F 40 L 18 100/56 01/30/17 00:00 40 L 18 01/29/17 23:42 97.9 F 49 L 18 83/47 01/29/17 20:00 52 L 18 01/29/17 19:55 97.9 F 52 L 18 105/55 01/29/17 17:05 42 L 14 01/29/17 16:35 98.0 F 42 L 14 109/61 01/29/17 16:11 98 F 52 L 20 121/58 01/29/17 15:08 50 L 18 105/58 01/29/17 14:48 55 L 18 119/62 01/29/17 14:43 50 L 146/67 01/29/17 13:55 40 L 18 147/71 01/29/17 12:52 51 L 16 133/69 01/29/17 12:26 16 01/29/17 12:25 42 L 16 01/29/17 11:15 97.7 F 50 L 18 124/57 Pulse Ox 01/30/17 07:45 100 01/30/17 04:00 98 01/30/17 00:00 01/29/17 23:42 98 01/29/17 20:00 01/29/17 19:55 97 01/29/17 17:05 01/29/17 16:35 99 01/29/17 16:11 97 01/29/17 15:08 97 01/29/17 14:48 99 01/29/17 14:43 01/29/17 13:55 100 01/29/17 12:52 100 01/29/17 12:26 01/29/17 12:25 100 01/29/17 11:15 100 Intake and Output 01/29/17 01/30/17 01/30/17 22:59 06:59 14:59 Intake Total 1080 Balance 1080 Intake: Intake, IV Titration 480 Amount Heparin Sodium,Porcine/ 240 D5w Pmx 25,000 unit In Dextrose/Water 1 500ml. bag @ 12 UNITS/KG/HR 17. 96 mls/hr IV .Q24H JASSON Rx #:[id number] Sodium Chloride 0.9% 1, 240 000 ml @ 20 mls/hr IV . Q24H JASSON Rx#:[id number] Oral 600 Other: Voiding Method Toilet Toilet # Voids 2 Weight 76.4 kg GENERAL: This is a 41-year-old female in no apparent distress at the time of my examination. HEENT: Head is atraumatic, normocephalic. Pupils are equal, round. Sclerae anicteric. Conjunctivae are clear. Mucous membranes of the mouth are moist. Neck is supple. There is no jugular venous distention. No carotid bruit is heard. LUNGS: Clear to auscultation no wheezes, rales or rhonchi. No chest wall tenderness is noted on palpation or with deep breathing. HEART: Regular rate and rhythm without murmurs, rubs or gallops. S1 and S2 heard. ABDOMEN: Soft, nontender. Bowel sounds are heard. No organomegaly noted. EXTREMITIES: 2+ peripheral pulses with no evidence of peripheral edema and no calf tenderness noted. NEUROLOGIC: Patient is awake, alert and oriented x3. Results 01/30/17 05:28 01/30/17 05:28 Cardiac Enzymes 01/29/17 01/29/17 01/29/17 Range/Units 12:00 12:00 18:24 AST 32 (14-36) U/L CK-MB (CK-2) 0.3 0.2 (0.0-2.4) ng/mL Troponin I <0.012 <0.012 (0.000-0.034) ng/mL 01/30/17 Range/Units 00:44 AST (14-36) U/L CK-MB (CK-2) <0.2 (0.0-2.4) ng/mL Troponin I <0.012 (0.000-0.034) ng/mL Coagulation 01/29/17 01/30/17 Range/Units 12:00 00:44 PT 12.4 H (9.0-12.0) sec APTT 22.5 51.7 H (22.0-30.0) sec Lipids 01/30/17 Range/Units 05:28 Triglycerides 66 (<150) mg/dL Cholesterol 136 (<200) mg/dL HDL Cholesterol 55 (40-60) mg/dL CBC 01/29/17 01/30/17 Range/Units 12:00 05:28 WBC 11.0 H 13.2 H (3.8-10.6) k/uL RBC 4.27 4.04 (3.80-5.40) m/uL Hgb 12.8 11.7 (11.4-16.0) gm/dL Hct 37.0 35.4 (34.0-46.0) % Plt Count 204 219 (150-450) k/uL Comprehensive Metabolic Panel 01/29/17 01/30/17 Range/Units 12:00 05:28 Sodium 139 139 (137-145) mmol/L Potassium 3.5 3.7 (3.5-5.1) mmol/L Chloride 112 H 110 H (98-107) mmol/L Carbon Dioxide 21 L 24 (22-30) mmol/L BUN 16 13 (7-17) mg/dL Creatinine 0.69 0.60 (0.52-1.04) mg/dL Glucose 90 100 H (74-99) mg/dL Calcium 8.9 8.7 (8.4-10.2) mg/dL AST 32 (14-36) U/L ALT 104 H (9-52) U/L Alkaline Phosphatase 40 (38-126) U/L Total Protein 5.5 L (6.3-8.2) g/dL Albumin 3.0 L (3.5-5.0) g/dL Current Medications Generic Name Dose Route Start Last Admin Trade Name Freq PRN Reason Stop Dose Admin Aspirin 325 mg 01/30/17 09:00 Aspirin PO DAILY [facility] Atorvastatin Calcium 10 mg 01/29/17 21:00 01/29/17 20:51 Lipitor PO 10 mg HS JASSON Administration Sodium Chloride 1,000 mls @ 20 mls/hr 01/29/17 16:00 01/29/17 16:06 Saline 0.9% IV 20 mls/hr .Q24H JASSON Administration Heparin Sodium/Dextrose 25,000 500 mls @ 17.96 mls/hr 01/29/17 16:00 16:07 unit/ IV Solution IV 12 units/kg/hr .Q24H JASSON 17.96 mls/hr Protocol Administration 12 UNITS/KG/HR Miscellaneous Information 1 each 01/29/17 13:09 Rx Info: Iv Contrast Was Given MISCELLANE 01/31/17 13:09 DAILY PRN Per Protocol Morphine Sulfate 30 mg 01/29/17 19:00 01/30/17 05:03 Ms Contin PO 30 mg 0500,1700 JASSON Administration Nitroglycerin 0.4 mg 01/29/17 14:33 01/29/17 14:48 Nitrostat SUBLINGUAL 0.4 mg Q5M PRN Administration Chest Pain Nitroglycerin 1 inch 01/29/17 18:00 01/30/17 05:18 Nitro-Bid Oint TOPICAL 1 inch Q6HR JASSON Administration Oxycodone/Acetaminophen 1 each 01/29/17 19:00 01/29/17 23:06 Percocet 10-325 PO 1 each 0500,1700 JASSON Administration Pantoprazole Sodium 40 mg 01/30/17 07:30 Protonix PO AC-BRKFST JASSON Polyethylene Glycol 17 gm 01/29/17 15:54 Miralax PO DAILY PRN Constipation Zonisamide 200 mg 01/29/17 21:00 01/29/17 20:51 Zonegran PO 200 mg HS JASSON Administration Intake and Output 01/29/17 01/30/17 01/30/17 22:59 06:59 14:59 Intake Total 1080 Balance 1080 Intake: Intake, IV Titration 480 Amount Heparin Sodium,Porcine/ 240 D5w Pmx 25,000 unit In Dextrose/Water 1 500ml. bag @ 12 UNITS/KG/HR 17. 96 mls/hr IV .Q24H JASSON Rx #:[id number] Sodium Chloride 0.9% 1, 240 000 ml @ 20 mls/hr IV . Q24H JASSON Rx#:[id number] Oral 600 Other: Voiding Method Toilet Toilet # Voids 2 Weight 76.4 kg 01/30/17 05:28 01/30/17 05:28 Assessment and Plan Assessment: ASSESSMENT 1. Chest pain, atypical for acute coronary syndrome with risk factor of hyperlipidemia. 2. Hyperlipidemia PLAN Obtain 2D echocardiogram and doppler study to evaluate cardiac structure and function. Perform stress echocardiogram to evaluate for ischemia. If this diagnostic testing is negative, from a cardiac perspective, she is stable for discharge home to follow up with PCP. Thank you kindly for this consultation. Nurse Practitioner note has been reviewed, I agree with a documented findings and plan of care. Patient was seen and examined.
[2017-01-31] MEDS ORDERED: ASPIRIN 81 MG PO SCH (09:00)
== END 2017-01-30 14:00 | disposition home or self-care (01) ==
LOC: EC 11:11 → INTOOBSV 15:52 → 3OBS 15:52
PROVIDERS: ADMIT Family Medicine; ATTEND Family Medicine
DX: R07.9 Chest pain, unspecified (principal); J90 Pleural effusion, not elsewhere classified; R79.89 Other specified abnormal findings of blood chemistry; R74.0 Nonspecific elevation of levels of transaminase and lactic acid dehydrogenase [LDH]; R00.1 Bradycardia, unspecified; G89.29 Other chronic pain; M54.6 Pain in thoracic spine; E78.5 Hyperlipidemia, unspecified; K51.90 Ulcerative colitis, unspecified, without complications; Z79.891 Long term (current) use of opiate analgesic; Z79.52 Long term (current) use of systemic steroids; Z79.899 Other long term (current) drug therapy; Z88.5 Allergy status to narcotic agent; Z87.891 Personal history of nicotine dependence; Z86.19 Personal history of other infectious and parasitic diseases; Z82.49 Family history of ischemic heart disease and other diseases of the circulatory system
CPT/HCPCS: 96375 ×5; 96361 ×5; 96376 ×2; 96365 ×2; 99285 ×2; 96366 ×2; 36415; 94760; 93005; 93017; 93306; 93350; 85379; 84439; 83880; 80061; 80053; 80048; 82550 ×2; 82553 ×2; 83735; 84443; 84484 ×2; 85025 ×2; 85610; 85730 ×2; 81003; 71010; 71020; 71275; G0378 ×2; J1200; J1644 ×2; J2930; Q9967; J1885

== ENCOUNTER → 2017-02-08 | Outpatient (CLI) | payer OTHER ==
--- NOTE | 2017-02-08 23:43 | MR ---
EXAMINATION TYPE: MR brain wo/w jewel moni DATE OF EXAM: 02/08/2017 COMPARISON: 12/05/2015 brain HISTORY: Headaches, dizziness, neck pain, white matter changes, MS protocol TECHNIQUE: Multiplanar, multisequence images of the brain and brainstem is performed without and with IV contras t, utilizing 7.5 mL intravenous Gadavist . FINDINGS: Ventricles have normal size. There is no mass effect nor midline shift. There is no sign of intracranial hemorrhage. Chiang and white matter structures have fairly normal signal pattern. There i s no evidence of cerebral edema. Contrast images of the brain show no pathologic enhancement. There i s a single 3 mm focus of increased signal at the chiang-white matter junction right parietal lobe. The cervical vertebra have normal spacing and alignment. Posterior elements appear intact. Cervical s tonya cord has fairly normal signal pattern. There is a thin linear area of increased signal in the c ervical cord at C6-7 level that is a very tiny syrinx. This only measures up to 2 mm in diameter. I s ee no mass of the cervical spinal cord. There is a moderate posterior disc herniation at C4-5 and to the spinal canal. There is developmental ly adequate canal and no spinal stenosis. There is a small posterior disc bulge at C6-7 and C7-T1. I do not see evidence of demyelinating disease in the cervical spinal cord. IMPRESSION: There is a moderate posterior disc herniation at C4-5 but no significant impingement on t he spinal cord. There is developmentally adequate spinal canal. Small syrinx in the cervical cord at C6-C7 level. Single small focus of increased signal in the right parietal lobe chiang-white matter junction. I overa ll have a very low suspicion of demyelinating disease. Brain appears unchanged compared to old exam.
== END | disposition home or self-care (01) ==
LOC: RADMRIMAIN 19:35
PROVIDERS: ATTEND Psychiatry & Neurology Neurology
DX: M50.221 Other cervical disc displacement at C4-C5 level (principal); R90.82 White matter disease, unspecified; Z91.041 Radiographic dye allergy status
CPT/HCPCS: 70553; 72141; A9581

== ENCOUNTER → 2017-07-26 | Outpatient (CLI) | payer OTHER ==
[2017-07-26 08:54] LABS: Basophils % (A) 0 %; Eosinophils # (A) 0.1 k/uL (0-0.7); Eosinophils % (A) 2 %; HCT 38.8 % (34.0-46.0); HGB 13.2 gm/dL (11.4-16.0); Lymphocytes # (A) 2.7 k/uL (1.0-4.8); Lymphocytes % (A) 39 %; MCH 28.9 pg (25.0-35.0); MCHC 34.2 g/dL (31.0-37.0); MCV 84.7 fL (80.0-100.0); Monocytes # (A) 0.4 k/uL (0-1.0); Monocytes % (A) 5 %; Neutrophils # (A) 3.6 k/uL (1.3-7.7); Neutrophils % (A) 52 %; Platelet Count 280 k/uL (150-450); RBC 4.57 m/uL (3.80-5.40); WBC 6.9 k/uL (3.8-10.6)
[2017-07-26 11:02] LABS: Erythrocyte Sedimentation Rate 2 mm/hr (0-20)
[2017-07-26 17:40] LABS: Rheumatoid Factor 4 IU/mL (0-15)
[2017-07-26 18:11] LABS: Anti-DNA, DS unit <1.0 IU/mL; DNA Double-Stranded NEGATIVE (NEGATIVE)
[2017-07-27 13:03] LABS: APTT 35 Sec(s) (<43); Dilute Russell Viper Venom 36 Sec(s) (<44)
== END | disposition home or self-care (01) ==
LOC: LABWHC1 08:29
PROVIDERS: ATTEND Family Medicine
DX: R21 Rash and other nonspecific skin eruption (principal); M35.3 Polymyalgia rheumatica; M06.9 Rheumatoid arthritis, unspecified
CPT/HCPCS: 36415; 85025; 85613; 85652; 85730; 86038; 86140; 86225; 86431

== ENCOUNTER → 2017-08-29 | Outpatient (CLI) | payer OTHER | END | disposition home or self-care (01) | LOC: LABPAT 08:16 | PROVIDERS: ATTEND Nurse Practitioner Acute Care | DX: Z01.818 Encounter for other preprocedural examination (principal) | CPT/HCPCS: 93005 ==

== ENCOUNTER → 2017-11-14 | Outpatient (CLI) | payer OTHER ==
--- NOTE | 2017-11-15 11:54 | MR ---
MR thoracic spine HISTORY: Thoracic spine pain Multiplanar multisequence imaging through the thoracic spine Correlation to prior thoracic spine MRI dated 03/31/2016 Thoracic vertebral bodies show stable height, alignment, and bone marrow signal. Multilevel spondylos is with minimal endplate discogenic marrow signal change. Mild spinal curvature is again seen. There is no significant foraminal encroachment or central canal stenosis. Mild multilevel facet arthropathy changes are present. Mild multilevel disc bulges are also seen. Thoracic cord signal is normal. C4-5 shows a small posterior disc bulge causing slight anterior mass effect on the thecal sac T6-7 shows a small posterior disc bulge causing minimal anterior mass effect on the thecal sac T7-8 shows a small posterior disc bulge causing slight anterior mass effect on the thecal sac T8 shows a small left paracentral disc bulge causing slight anterior mass effect on the thecal sac. IMPRESSION: Mild degenerative disc disease. Similar appearance to previous exam.
== END | disposition home or self-care (01) ==
LOC: RADMRIMAIN 19:21
PROVIDERS: ATTEND Nurse Practitioner Acute Care
DX: M51.34 Other intervertebral disc degeneration, thoracic region (principal); Z91.041 Radiographic dye allergy status; M54.6 Pain in thoracic spine
CPT/HCPCS: 72146

== ENCOUNTER → 2018-03-30 | Outpatient (CLI) | payer OTHER | END | disposition home or self-care (01) | LOC: LABWHC1 08:32 | PROVIDERS: ATTEND Nurse Practitioner Acute Care | DX: Z01.812 Encounter for preprocedural laboratory examination (principal) | CPT/HCPCS: 36415; 82565; 84520 ==

== ENCOUNTER → 2018-12-13 | Outpatient (CLI) | payer OTHER ==
[2018-12-13 10:03] LABS: HCT 42.3 % (34.0-46.0); HGB 14.7 gm/dL (11.4-16.0); MCH 29.4 pg (25.0-35.0); MCHC 34.7 g/dL (31.0-37.0); MCV 84.9 fL (80.0-100.0); Mean Platelet Volume 6.3; Platelet Count 265 k/uL (150-450); RBC 4.98 m/uL (3.80-5.40); RDW 13.2 % (11.5-15.5); WBC 8.8 k/uL (3.8-10.6)
[2018-12-13 10:13] LABS: ALT 30 U/L (9-52); AST 22 U/L (14-36); African American GFR (CKD) >90 (>60 ml/min/1.73 sqM); Albumin 4.4 g/dL (3.5-5.0); Alkaline Phosphatase 56 U/L (38-126); Anion Gap 8 mmol/L; Blood Urea Nitrogen 13 mg/dL (7-17); Calcium 9.7 mg/dL (8.4-10.2); Carbon Dioxide 26 mmol/L (22-30); Chloride 106 mmol/L (98-107); Glucose 115 mg/dL (74-99); Potassium 4.7 mmol/L (3.5-5.1); Sodium 140 mmol/L (137-145); Total Bilirubin 0.5 mg/dL (0.2-1.3); Total Protein 7.4 g/dL (6.3-8.2)
[2018-12-13 10:29] LABS: T4, Free (Free Thyroxine) 0.87 ng/dL (0.78-2.19)
[2018-12-13 17:15] LABS: Vitamin D 25 Hydroxy 21.6 ng/mL (30.0-100.0)
--- NOTE | 2018-12-16 17:54 | EEG ---
ELECTROENCEPHALOGRAM REPORT PROCEDURE DATE: 12/13/2018. ELECTROENCEPHALOGRAM (EEG) REPORT: TECHNIQUE: A routine 18 channel EEG was performed with video using the 10/20 international placement system. HISTORY: Dizziness and visual changes. CURRENT MEDICATIONS: Percocet, simvastatin, Nexium. STUDY DURATION: 25 minutes. FINDINGS: Background: The background activity consisted of 9-10 hertz rhythmic waveforms symmetrically seen over both posterior quadrants. ACTIVATION: Hyperventilation: Not performed. Photic stimulation: Symmetric driving seen. Sleep: Stages 1 and 2 sleep noted. ABNORMALITIES: None. Please note that 1 channel of this EEG was dedicated to EKG. It demonstrated a sinus rhythm. IMPRESSION: Normal EEG. No epileptiform activity was present. No seizures were recorded. MMODL / IJN: [id number] /
== END | disposition home or self-care (01) ==
LOC: NEUROMAIN 09:29
PROVIDERS: ATTEND Psychiatry & Neurology Neurology
DX: H53.8 Other visual disturbances (principal); R42 Dizziness and giddiness; E55.9 Vitamin D deficiency, unspecified
CPT/HCPCS: 80053; 82306; 82607; 84207; 84439; 84443; 84481; 85027; 95816

== ENCOUNTER → 2018-12-14 | Outpatient (CLI) | payer OTHER ==
--- NOTE | 2018-12-14 21:44 | MR ---
EXAMINATION TYPE: MR angio head wo/neck wo/w con DATE OF EXAM: 12/14/2018 COMPARISON: None HISTORY: Dizziness / Visual disturbance TECHNIQUE: Time of flight images focusing on the [place] of [place] were performed without contrast.. 2-D and 3-D postprocessing imaging is performed. Contrast images were obtained with gadolinium 7.5 mL. FINDINGS: There is arterial flow in the anterior middle and posterior cerebral arteries. There is sma ll diameter of the proximal right anterior cerebral artery. There is patency of the left posterior co mmunicating artery. Right anterior cerebral arteries probably filled to a large extent through the an terior communicating artery. There is no mass effect. There is no evidence of intracranial aneurysm o r neovascularity. There is arterial flow in the vertebrobasilar artery system. There is arterial flow in the intracranial internal carotid arteries with normal diameter. There is arterial flow in the common internal and external carotid arteries bilaterally. There is art erial flow in the vertebral arteries bilaterally. There is normal branching pattern of the great vess els on the aortic arch. I see no evidence of hemodynamic stenosis of the carotid or vertebral arterie s. Vertebral arteries are symmetric. IMPRESSION: Negative CT angiogram of the neck. Diminutive proximal right anterior cerebral artery. It is not clear if there is acquired hemodynamic stenosis or developmentally small vessel. I think this is more likely developmental abnormality. No i ntracranial aneurysm.
--- NOTE | 2018-12-14 21:52 | MR ---
EXAMINATION TYPE: MR brain wo/w con DATE OF EXAM: 12/14/2018 COMPARISON: 02/08/2017 HISTORY: Dizziness / Visual disturbance TECHNIQUE: Multiplanar, multisequence images of the brain and brainstem is performed without and with IV contras t, utilizing 7.5 mL intravenous Gadavist . FINDINGS: Ventricles have normal size. There is no mass effect nor midline shift. There is no sign of intracranial hemorrhage. Chiang-white matter structures have normal signal pattern. There is no eviden ce of cerebral edema. There is no evidence of cortical infarct. There is mild ethmoid sinus mucosal t hickening. Brainstem is intact. Sella turcica appears normal. Corpus callosum is normal. There is no pathologic enhancement. There is normal contrast opacification of the venous sinuses. There is no evidence of ce rebral edema. There is on the FLAIR images a single 4 mm high signal focus in the subcortical right p arietal lobe. IMPRESSION: Minimal ethmoid sinusitis unchanged. Single right parietal small high signal focus in the subcortical region unchanged compared to old exam. Clinical significance is not clear. No evidence o f cortical infarct.
== END ==
LOC: RADMRIMAIN 20:12
PROVIDERS: ATTEND Psychiatry & Neurology Neurology
DX: H53.8 Other visual disturbances (principal); M54.81 Occipital neuralgia; R90.82 White matter disease, unspecified; R42 Dizziness and giddiness
CPT/HCPCS: 70544; 70549; 70553; A9585

== ENCOUNTER → 2019-04-04 | Outpatient (CLI) | payer OTHER ==
[2019-04-04 10:35] LABS: Basophils # (A) 0.1 k/uL (0-0.2); Basophils % (A) 1 %; Eosinophils # (A) 0.3 k/uL (0-0.7); Eosinophils % (A) 3 %; HCT 42.2 % (34.0-46.0); HGB 14.4 gm/dL (11.4-16.0); Lymphocytes # (A) 3.1 k/uL (1.0-4.8); Lymphocytes % (A) 36 %; MCH 29.1 pg (25.0-35.0); MCV 85.6 fL (80.0-100.0); Mean Platelet Volume 6.7; Monocytes # (A) 0.3 k/uL (0-1.0); Monocytes % (A) 4 %; Neutrophils # (A) 4.8 k/uL (1.3-7.7); Neutrophils % (A) 55 %; Platelet Count 321 k/uL (150-450); RBC 4.93 m/uL (3.80-5.40); RDW 12.7 % (11.5-15.5); WBC 8.7 k/uL (3.8-10.6)
[2019-04-04 17:05] LABS: African American GFR (CKD) 105.4 (60.0-200.0); Albumin 4.4 g/dL (3.80-4.90); Albumin/Globulin Ratio 2.2 (1.60-3.17); Anion Gap 9.5 mmol/L (4.00-12.00); BUN/Creat Ratio 13.75 Ratio (12.00-20.00); Calcium 9.2 mg/dL (8.7-10.3); Carbon Dioxide 24.5 mmol/L (21.6-31.8); Non-African American GFR(CKD) 90.9 (60.0-200.0); Potassium 4.8 mmol/L (3.5-5.5); Total Bilirubin 0.3 mg/dL (0.3-1.2); Total Protein 6.4 g/dL (6.2-8.2)
[2019-04-04 17:11] LABS: T4, Free (Free Thyroxine) 1.1 ng/dL (0.80-1.80)
== END | disposition home or self-care (01) ==
LOC: LABWHC1 09:36
PROVIDERS: ATTEND Nurse Practitioner Acute Care
DX: E55.9 Vitamin D deficiency, unspecified (principal); R53.83 Other fatigue
CPT/HCPCS: 36415; 80053; 82306; 82607; 84207; 84439; 84443; 84481; 85025

== ENCOUNTER 2019-04-08 20:02 | Emergency (ER) | payer OTHER ==
[2019-04-08 20:08] VITALS: TEMP 99.8
[2019-04-08] MEDS ORDERED: DEXAMETHASONE SOD PHOSPHATE 10 MG/ML 1 ML VIAL IV STA (20:32)
[2019-04-08] MEDS ORDERED: diphenhydrAMINE 50 MG/ML 1 ML VIAL IVP STA (20:32)
[2019-04-08] MEDS ORDERED: FAMOTIDINE 20 MG/2 ML VIAL IV STA (20:37)
--- NOTE | 2019-04-08 20:57 | ED ---
General Adult HPI - General Chief complaint: ENT Stated complaint: throat closing up Time Seen by Provider: 04/08/19 20:27 Source: patient Mode of arrival: ambulatory Limitations: no limitations - History of Present Illness Initial comments: Dictation was produced using Headroom dictation software. please excuse any grammatical, word or spelling errors. Chief Complaint: 44-year-old female presents with sensation of throat and tongue swelling since this morning History of Present Illness: 44-year-old female she presents today with chief complaint of throat and tongue swelling. Patient states that she just completed a course of Augmentin. Just takes Nexium and Percocet. Patient states that her symptoms were mild this morning however increased to today. Patient denies any history of angioedema. Denies any lisinopril and her medication list. No hereditary history of angioedema. Patient has any trouble breathing. She is de nies any trouble swallowing. States that she feels as though her left tongue is slightly painful. She does also have sore throat with swallowing. The ROS documented in this emergency department record has been reviewed and confirmed by me. Those systems with pertinent positive or negative responses have been documented in the HPI. All other systems are other negative and/or noncontributory. PHYSICAL EXAM: General Impression: Alert and oriented x3, not in acute distress, no drooling HEENT: Normocephalic atraumatic, extra-ocular movements intact, pupils equal and reactive to light bilaterally, mucous membranes moist, normal phonation, also seen at the soft palate in the posterior left, no appreciable tongue swelling, uvula midline no asymmetry noted, Cardiovascular: Heart regular rate and rhythm, S1&S2 audible, no murmurs, rubs or gallops Chest: Lungs clear to auscultation bilaterally, no rhonchi, no wheeze, no rales Abdomen: Bowel sounds present, abdomen soft, non-tender, non-distended, no organomegaly Musculoskeletal: Pulses present and equal in all extremities, no peripheral edema Motor: no focal deficits noted Neurological: CN II-XII grossly intact, no focal motor or sensory deficits noted Skin: Intact with no visualized rashes Psych: Normal affect and mood ED course:44 yo female with chief complaint of throat and tongue swelling. I'll shows temperature of 99.8, rest of vital signs within acceptable limits. Patient is recently Augmentin for treatment of sinusitis. Patient is well- appearing at bedside. No significant physical exam findings to suggest angioede ma at this time. She reports that her symptoms began upon waking this morning. There is an ulcer that is seen in the soft palate of the posterior oropharynx likely causing patient's odynophagia. She is well appearing showing no signs of drooling or respiratory distress. Given Decadron Pepcid and diphenhydramine. She is observed in emergency department for 2-1/2 hours with no progression of symptoms. Discussed with patient that she has symptoms suggesting angioedema. Her physical exam is not impressive for angioedema. She states her symptoms started at 5 AM this morning. There is likely will be no progression of her symptoms she is advised to follow-up with primary care physician upon discharge. Discussed with patient that there is concern that perhaps this is secondary to an ALLERGY. She is still to be mindful of her exposures and if she develop symptoms again. She is otherwise advised follow-up with primary care physician upon discharge. Return parameters discussed. All questions answered. - Related Data Home Medications Medication Instructions Recorded Confirmed Esomeprazole Magnesium [NexIUM] 40 mg PO DAILY 01/29/17 01/29/17 Morphine Sulfate ER [Ms Contin] 30 mg PO Q12HR 01/29/17 01/29/17 Polyethylene Glycol 3350 [Miralax] 17 gm PO DAILY PRN 01/29/17 01/29/17 Simvastatin [Zocor] 20 mg PO HS 01/29/17 01/29/17 Zonisamide [Zonegran] 200 mg PO HS 01/29/17 01/29/17 oxyCODONE-APAP 10-325MG [Percocet 1 tab PO BID 01/29/17 01/29/17 10-325 mg] Allergies Allergy/AdvReac Type Severity Reaction Status Date / Time Iodinated Contrast Media Allergy Itching Verified 04/08/19 20:06 [Iodinated Contrast- Oral and IV Dye] Review of Systems ROS Statement: Those systems with pertinent positive or pertinent negative responses have been documented in the HPI. ROS Other: All systems not noted in ROS Statement are negative. Past Medical History Past Medical History: No Reported History Additional Past Medical History / Comment(s): chronic back pain- pt recieving infusions and rule out MS. History of Any Multi-Drug Resistant Organisms: C-DIFF Date of last positivie culture/infection: 2014 MDRO Source:: stool Past Surgical History: Breast Surgery, Tonsillectomy Additional Past Surgical History / Comment(s): lumpectomy Past Anesthesia/Blood Transfusion Reactions: No Reported Reaction Past Psychological History: No Psychological Hx Reported Smoking Status: Former smoker Past Alcohol Use History: None Reported Past Drug Use History: None Reported - Past Family History Father Family Medical History: Diabetes Mellitus Additional Family Medical History / Comment(s): heart disease. at 22 from car accident. Mother Family Medical History: No Reported History General Exam Limitations: no limitations Course Vital Signs 04/08/19 04/08/19 04/08/19 20:06 20:23 21:59 Temperature 99.8 F H Pulse Rate 87 91 Respiratory 18 20 16 Rate Blood Pressure 143/77 132/77 O2 Sat by Pulse 97 98 Oximetry Disposition Clinical Impression: Angioedema Disposition: HOME SELF-CARE Condition: Good Instructions (If sedation given, give patient instructions): Angioedema (ED) Is patient prescribed a controlled substance at d/c from ED?: No Referrals: Vahid Griffin DO [Primary Care Provider] - 1-2 days Time of Disposition: 22:36
[2019-04-08 21:59] VITALS: BP 132/77; PULSE 91; RESP 16
== END 2019-04-08 22:46 | disposition home or self-care (01) ==
LOC: EC 20:02
DX: T78.3XXA Angioneurotic edema, initial encounter (principal); Z87.891 Personal history of nicotine dependence; Z79.891 Long term (current) use of opiate analgesic; Z79.899 Other long term (current) drug therapy; Z91.041 Radiographic dye allergy status
CPT/HCPCS: 99283; 96374; 96375 ×2; J1200; J1100

== ENCOUNTER → 2019-04-30 | Outpatient (CLI) | payer OTHER ==
[2019-04-30 20:10] LABS: HIV 1 AB Non-Reactive (Non-Reactive); HIV 2 AB Non-Reactive (Non-Reactive); HIV AB P24 Non-Reactive (Non-Reactive); HIV P24 AG Non-Reactive (Non-Reactive)
[2019-04-30 22:24] LABS: Hepatitis B Surface AB- Quant 278.7 mIU/mL; Hepatitis B Surface Antibody Reactive (Non-Reactive); Hepatitis C IgG Antibody Non-Reactive (Non-Reactive)
== END | disposition home or self-care (01) ==
LOC: LABWHC1 13:26
PROVIDERS: ATTEND Psychiatry & Neurology Neurology
DX: Z77.29 Contact with and (suspected) exposure to other hazardous substances (principal)
CPT/HCPCS: 36415; 86706; 86803; 87390

== ENCOUNTER → 2019-08-15 | Outpatient (CLI) | payer OTHER ==
--- NOTE | 2019-08-20 09:10 | MM ---
Reason for exam: screening (asymptomatic). Last mammogram was performed 6 years and 2 months ago. History: Family history of breast cancer in maternal aunt and breast cancer in paternal grandmother. Benign excisional biopsy of the right breast, 2016. Took hormonal contraceptives for 12 years beginning at age 18. Physical Findings: A clinical breast exam by your physician is recommended on an annual basis and results should be correlated with mammographic findings. MG 3D Screening Mammo W/Cad Bilateral CC and MLO view(s) were taken. Prior study comparison: June 20, 2013, bilateral digital screening mammo w/CAD. The breast tissue is heterogeneously dense. This may lower the sensitivity of mammography. Anterior asymmetric density on the right and focal asymmetry on the left more defined from 2013. ASSESSMENT: Incomplete: need additional imaging evaluation, BI-RAD 0 RECOMMENDATION: Special view mammogram of both breasts. (3D) If lesion persists on supplemental views, image directed ultrasound is recommended. [facility] will attempt to contact patient to return for supplemental views and ultrasound if indicated.
== END | disposition home or self-care (01) ==
LOC: RADMAMWWP 08:01
PROVIDERS: ATTEND Obstetrics & Gynecology
DX: Z12.31 Encounter for screening mammogram for malignant neoplasm of breast (principal)
CPT/HCPCS: 77063; 77067

== ENCOUNTER → 2019-09-05 | Outpatient (CLI) | payer OTHER ==
--- NOTE | 2019-09-05 11:52 | MM ---
Reason for exam: additional evaluation requested from abnormal screening. Last mammogram was performed 1 month ago. History: Family history of breast cancer in maternal aunt and breast cancer in paternal grandmother. Benign excisional biopsy of the right breast, 2016. Took hormonal contraceptives for 12 years beginning at age 18. Physical Findings: Nurse did not find any significant physical abnormalities on exam. MG 3D Work Up W/Cad JUAN JOSE Bilateral spot compression CC, spot compression MLO, and ML view(s) were taken. Prior study comparison: August 15, 2019, bilateral MG 3d screening mammo w/cad. June 20, 2013, bilateral digital screening mammo w/CAD. The breast tissue is heterogeneously dense. This may lower the sensitivity of mammography. No distinct lesion persists on additional views. These results were verbally communicated with the patient and result sheet given to the patient on 09/05/19. ASSESSMENT: Negative, BI-RAD 1 RECOMMENDATION: Return to routine screening mammogram schedule for both breasts.
== END | disposition home or self-care (01) ==
LOC: RADMAMWWP 10:07
PROVIDERS: ATTEND Obstetrics & Gynecology
DX: R92.8 Other abnormal and inconclusive findings on diagnostic imaging of breast (principal)
CPT/HCPCS: 77062; 77066

== ENCOUNTER 2019-11-18 15:53 | Emergency (ER) | payer OTHER ==
[2019-11-18 16:03] VITALS: RESP 16; TEMP 98.6
[2019-11-18] MEDS ORDERED: SODIUM CHLORIDE 0.9% 1,000 ML IV STA (16:57)
[2019-11-18] MEDS ORDERED: HYDROmorphone 0.5 MG/0.5 ML SYRINGE IVP STA (16:57)
--- NOTE | 2019-11-18 17:00 | ED ---
General Adult HPI - General Chief complaint: Abdominal Pain Stated complaint: lower abd pain Time Seen by Provider: 11/18/19 16:30 Source: patient, family, RN notes reviewed Mode of arrival: ambulatory Limitations: no limitations - History of Present Illness Initial comments: Patient is a pleasant 44-year-old female presenting to the emergency Department with complaints of abdominal discomfort. Onset of symptoms was yesterday morning. Symptoms worsened throughout the day. Symptoms are fairly steady today. Discomfort is or 5/10. Discomfort is mostly right lower quadrant. Slight decrease in appetite. Patient is tolerating oral intake however. No fevers. No nausea vomiting. patient diarrhea. Symptoms do worsen with position changes. No history of similar symptoms previously. - Related Data Home Medications Medication Instructions Recorded Confirmed Esomeprazole Magnesium [NexIUM] 40 mg PO DAILY 01/29/17 04/08/19 oxyCODONE-APAP 10-325MG [Percocet 1 tab PO BID 01/29/17 04/08/19 10-325 mg] Fluticasone Nasal [place] [Flonase 2 spray EA NOSTRIL DAILY PRN 04/08/19 04/08/19 Nasal [place]] Allergies Allergy/AdvReac Type Severity Reaction Status Date / Time Iodinated Contrast Media Allergy Itching/shortness Verified 11/18/19 16:02 [Iodinated Contrast- Oral of breath and IV Dye] Review of Systems ROS Statement: Those systems with pertinent positive or pertinent negative responses have been documented in the HPI. ROS Other: All systems not noted in ROS Statement are negative. Constitutional: Denies: fever Eyes: Denies: eye pain ENT: Denies: ear pain Respiratory: Denies: cough Cardiovascular: Denies: chest pain Endocrine: Denies: fatigue Gastrointestinal: Reports: as per HPI, abdominal pain. Denies: nausea, vomiting, diarrhea, constipation Genitourinary: Denies: dysuria Musculoskeletal: Denies: back pain Skin: Denies: rash Neurological: Denies: weakness Past Medical History Past Medical History: No Reported History Additional Past Medical History / Comment(s): chronic back pain- pt recieving infusions and rule out MS. History of Any Multi-Drug Resistant Organisms: C-DIFF Date of last positivie culture/infection: 2014 MDRO Source:: stool Past Surgical History: Breast Surgery, Tonsillectomy Additional Past Surgical History / Comment(s): lumpectomy Past Anesthesia/Blood Transfusion Reactions: No Reported Reaction Past Psychological History: No Psychological Hx Reported Smoking Status: Current every day smoker Past Alcohol Use History: Occasional Past Drug Use History: None Reported - Past Family History Father Family Medical History: Diabetes Mellitus Additional Family Medical History / Comment(s): heart disease. at 22 from car accident. Mother Family Medical History: No Reported History General Exam Limitations: no limitations General appearance: alert, in no apparent distress Head exam: Present: normocephalic Eye exam: Present: normal appearance Neck exam: Present: normal inspection Respiratory exam: Present: normal lung sounds bilaterally Cardiovascular Exam: Present: regular rate, normal rhythm Expanded Peripheral pulses: 2+: Dorsalis Pedis (R), Dorsalis Pedis (L) GI/Abdominal exam: Present: soft, tenderness (Moderate tenderness right lower quadrant), normal bowel sounds. Absent: distended, guarding, rebound, rigid, pulsatile mass Extremities exam: Present: normal inspection Back exam: Present: normal inspection. Absent: tenderness Neurological exam: Present: alert Psychiatric exam: Present: normal affect, normal mood Skin exam: Present: normal color Course Vital Signs 11/18/19 16:02 Temperature 98.6 F Pulse Rate 89 Respiratory 16 Rate Blood Pressure 124/76 O2 Sat by Pulse 98 Oximetry Medical Decision Making - Medical Decision Making Patient reevaluated and resting comfortably at bedside. Patient and family are updated on results. Patient states she still has some discomfort however does not want further medication and does request discharge home. - Lab Data Result diagrams: 11/18/19 17:02 11/18/19 17:02 Lab Results 11/18/19 11/18/19 11/18/19 Range/Units 17:02 17:02 17:02 WBC 10.1 (3.8-10.6) k/uL RBC 5.01 (3.80-5.40) m/uL Hgb 14.5 (11.4-16.0) gm/dL Hct 43.2 (34.0-46.0) % MCV 86.1 (80.0-100.0) fL MCH 28.9 (25.0-35.0) pg MCHC 33.5 (31.0-37.0) g/dL RDW 13.1 (11.5-15.5) % Plt Count 300 (150-450) k/uL Neutrophils % 57 % Lymphocytes % 32 % Monocytes % 5 % Eosinophils % 4 % Basophils % 1 % Neutrophils # 5.7 (1.3-7.7) k/uL Lymphocytes # 3.2 (1.0-4.8) k/uL Monocytes # 0.5 (0-1.0) k/uL Eosinophils # 0.4 (0-0.7) k/uL Basophils # 0.1 (0-0.2) k/uL PT 10.1 (9.0-12.0) sec INR 1.0 (<1.2) APTT 22.6 (22.0-30.0) sec Sodium (137-145) mmol/L Potassium (3.5-5.1) mmol/L Chloride (98-107) mmol/L Carbon Dioxide (22-30) mmol/L Anion Gap mmol/L BUN (7-17) mg/dL Creatinine (0.52-1.04) mg/dL Est GFR (CKD-EPI)AfAm (>60 ml/min/1.73 sqM) Est GFR (CKD-EPI)NonAf (>60 ml/min/1.73 sqM) Glucose (74-99) mg/dL Calcium (8.4-10.2) mg/dL Total Bilirubin (0.2-1.3) mg/dL AST (14-36) U/L ALT (4-34) U/L Alkaline Phosphatase (38-126) U/L Total Protein (6.3-8.2) g/dL Albumin (3.5-5.0) g/dL Amylase (30-110) U/L Lipase (23-300) U/L Urine Color Yellow Urine Appearance Clear (Clear) Urine pH 5.5 (5.0-8.0) Ur Specific Peck 1.025 (1.001-1.035) Urine Protein Negative (Negative) Urine Glucose (UA) Negative (Negative) Urine Ketones Negative (Negative) Urine Blood Trace H (Negative) Urine Nitrite Negative (Negative) Urine Bilirubin Negative (Negative) Urine Urobilinogen 2.0 (<2.0) mg/dL Ur Leukocyte Esterase Negative (Negative) Urine RBC 1 (0-5) /hpf Urine WBC <1 (0-5) /hpf Ur Squamous Epith Cells 1 (0-4) /hpf Urine Bacteria Rare H (None) /hpf Hyaline Casts 1 (0-2) /lpf Urine Mucus Occasional H (None) /hpf Urine HCG, Qual (Not Detectd) 11/18/19 11/18/19 Range/Units 17:02 17:02 WBC (3.8-10.6) k/uL RBC (3.80-5.40) m/uL Hgb (11.4-16.0) gm/dL Hct (34.0-46.0) % MCV (80.0-100.0) fL MCH (25.0-35.0) pg MCHC (31.0-37.0) g/dL RDW (11.5-15.5) % Plt Count (150-450) k/uL Neutrophils % % Lymphocytes % % Monocytes % % Eosinophils % % Basophils % % Neutrophils # (1.3-7.7) k/uL Lymphocytes # (1.0-4.8) k/uL Monocytes # (0-1.0) k/uL Eosinophils # (0-0.7) k/uL Basophils # (0-0.2) k/uL PT (9.0-12.0) sec INR (<1.2) APTT (22.0-30.0) sec Sodium 136 L (137-145) mmol/L Potassium 3.9 (3.5-5.1) mmol/L Chloride 106 (98-107) mmol/L Carbon Dioxide 24 (22-30) mmol/L Anion Gap 6 mmol/L BUN 9 (7-17) mg/dL Creatinine 0.63 (0.52-1.04) mg/dL Est GFR (CKD-EPI)AfAm >90 (>60 ml/min/1.73 sqM) Est GFR (CKD-EPI)NonAf >90 (>60 ml/min/1.73 sqM) Glucose 107 H (74-99) mg/dL Calcium 9.7 (8.4-10.2) mg/dL Total Bilirubin 0.5 (0.2-1.3) mg/dL AST 25 (14-36) U/L ALT 23 (4-34) U/L Alkaline Phosphatase 61 (38-126) U/L Total Protein 6.9 (6.3-8.2) g/dL Albumin 4.3 (3.5-5.0) g/dL Amylase 55 (30-110) U/L Lipase 77 (23-300) U/L Urine Color Urine Appearance (Clear) Urine pH (5.0-8.0) Ur Specific Peck (1.001-1.035) Urine Protein (Negative) Urine Glucose (UA) (Negative) Urine Ketones (Negative) Urine Blood (Negative) Urine Nitrite (Negative) Urine Bilirubin (Negative) Urine Urobilinogen (<2.0) mg/dL Ur Leukocyte Esterase (Negative) Urine RBC (0-5) /hpf Urine WBC (0-5) /hpf Ur Squamous Epith Cells (0-4) /hpf Urine Bacteria (None) /hpf Hyaline Casts (0-2) /lpf Urine Mucus (None) /hpf Urine HCG, Qual Not Detected (Not Detectd) - Radiology Data Radiology results: report reviewed (Computed tomography scan of the abdomen pelvis shows no acute process) Disposition Clinical Impression: Abdominal pain Disposition: HOME SELF-CARE Condition: Stable Instructions (If sedation given, give patient instructions): Abdominal Pain (ED) Additional Instructions: Please follow-up with primary care physician in the next couple of days for recheck. Return for fevers, increased pain, worsening or change in symptoms or other concerns. Is patient prescribed a controlled substance at d/c from ED?: No Referrals: Vahid Griffin DO [Primary Care Provider] - 1-2 days Time of Disposition: 19:11
[2019-11-18 17:15] LABS: Basophils # (A) 0.1 k/uL (0-0.2); Basophils % (A) 1 %; Eosinophils # (A) 0.4 k/uL (0-0.7); Eosinophils % (A) 4 %; HCT 43.2 % (34.0-46.0); HGB 14.5 gm/dL (11.4-16.0); Lymphocytes # (A) 3.2 k/uL (1.0-4.8); Lymphocytes % (A) 32 %; MCH 28.9 pg (25.0-35.0); MCHC 33.5 g/dL (31.0-37.0); MCV 86.1 fL (80.0-100.0); Mean Platelet Volume 6.7; Monocytes # (A) 0.5 k/uL (0-1.0); Monocytes % (A) 5 %; Neutrophils # (A) 5.7 k/uL (1.3-7.7); Neutrophils % (A) 57 %; Platelet Count 300 k/uL (150-450); RBC 5.01 m/uL (3.80-5.40); RDW 13.1 % (11.5-15.5); WBC 10.1 k/uL (3.8-10.6)
[2019-11-18 17:18] LABS: Appearance,Urine Clear (Clear); Bacteria,Urine Rare /hpf; Bilirubin,Urine Negative (Negative); Blood,Urine Trace (Negative); Color,Urine Yellow; Glucose,Urine (UA) Negative (Negative); Hyaline Casts,Urine 1 /lpf (0-2); Ketones,Urine Negative (Negative); Leukocyte Esterase,Urine Negative (Negative); Mucus,Urine Occasional /hpf; Nitrite,Urine Negative (Negative); PH, Urine 5.5 (5.0-8.0); Protein,Urine Negative (Negative); RBC,Urine 1 /hpf (0-5); Specific Gravity,Urine 1.025 (1.001-1.035); Squamous Epithelial Cell,Urine 1 /hpf (0-4); WBC,Urine <1 /hpf (0-5)
[2019-11-18 17:24] LABS: Partial Thromboplastin Time 22.6 sec (22.0-30.0); Prothrombin Time 10.1 sec (9.0-12.0)
[2019-11-18 17:26] LABS: ALT 23 U/L (4-34); AST 25 U/L (14-36); African American GFR (CKD) >90 (>60 ml/min/1.73 sqM); Albumin 4.3 g/dL (3.5-5.0); Alkaline Phosphatase 61 U/L (38-126); Amylase 55 U/L (30-110); Anion Gap 6 mmol/L; Blood Urea Nitrogen 9 mg/dL (7-17); Calcium 9.7 mg/dL (8.4-10.2); Carbon Dioxide 24 mmol/L (22-30); Chloride 106 mmol/L (98-107); Glucose 107 mg/dL (74-99); Non-African American GFR(CKD) >90 (>60 ml/min/1.73 sqM); Potassium 3.9 mmol/L (3.5-5.1); Sodium 136 mmol/L (137-145); Total Bilirubin 0.5 mg/dL (0.2-1.3); Total Protein 6.9 g/dL (6.3-8.2)
--- NOTE | 2019-11-18 17:54 | CT ---
EXAMINATION TYPE: CT abdomen pelvis wo con DATE OF EXAM: 11/18/2019 COMPARISON: 04/27/2007 HISTORY: Right inguinal pain. CT DLP: 599.7 mGycm Automated exposure control for dose reduction was used. Lung bases are clear. There is no pleural effusion. Heart size is normal. Liver spleen pancreas gallb ladder stomach appear intact. Bile ducts are not dilated. There is no adrenal mass. Kidneys show normal size and contour. There is no hydronephrosis. Ureters a re not dilated. There is no retroperitoneal adenopathy. Bladder distends smoothly. There is no inguin al hernia. There is no free fluid in the pelvis. Lumbar vertebra have normal spacing and alignment. P osterior elements are intact. Bony pelvis is intact. Uterus is anteverted. There is no evidence of a pelvic mass. Appendix is posterior and appears normal. There is no mesenteric edema. There is no ascites or free a ir. There is no bowel obstruction. IMPRESSION: Negative CT scan abdomen and pelvis. Normal appendix. No evidence of inguinal hernia. No adverse arriaga ge compared to old exam.
[2019-11-18 19:21] VITALS: BP 129/86; PULSE 71
== END 2019-11-18 19:20 | disposition home or self-care (01) ==
LOC: EC 15:53
DX: R10.30 Lower abdominal pain, unspecified (principal); R10.813 Right lower quadrant abdominal tenderness; F17.200 Nicotine dependence, unspecified, uncomplicated; Z79.899 Other long term (current) drug therapy; Z91.041 Radiographic dye allergy status
CPT/HCPCS: 36415; 74176; 80053; 81001; 81025; 82150; 83690; 85025; 85610; 85730; 96361; 96374; 99284

== ENCOUNTER → 2020-02-10 | Outpatient (CLI) | payer OTHER | END | disposition home or self-care (01) | LOC: LABWHC1 14:17 | PROVIDERS: ATTEND Psychiatry & Neurology Neurology | DX: Z20.828 Contact with and (suspected) exposure to other viral communicable diseases (principal) | CPT/HCPCS: U0003; C9803 ==

== ENCOUNTER → 2020-02-28 | Outpatient (CLI) | payer OTHER ==
--- NOTE | 2020-02-28 21:15 | MR ---
EXAMINATION TYPE: MR cspine/tspine/lspine wo con DATE OF EXAM: 02/28/2020 COMPARISON: None HISTORY: Neck/back pain, limited ROM, BUE/BLE radiculopathy CONTRAST: Performed utilizing 0 mL intravenous Gadavist gadolinium contrast. TECHNIQUE: Multiplanar multiecho imaging on a 3.0 Mae magnet is performed through the cervical spin e. FINDINGS: The craniovertebral junction is normal. Vertebral body alignment is normal. C7-T1: No focal disc herniation or significant disc bulge is evident. No spinal canal stenosis or n eural foraminal stenosis is present. C6-7: Mild disc bulge present. This is slightly greater in the left paracentral region. No cord conta ct is evident. No spinal canal stenosis is present. Neural foramen are patent.. C5-6: No focal disc herniation or significant disc bulge is evident. No spinal canal stenosis or puneet ral foraminal stenosis is present. C4-5: Mild central focal bulge is present. No spinal canal stenosis present. Neural foramen are paten t. No cord flattening is evident. C3-4: No focal disc herniation or significant disc bulge is evident. No spinal canal stenosis or puneet ral foraminal stenosis is present. C2-3: No focal disc herniation or significant disc bulge is evident. No spinal canal stenosis or puneet ral foraminal stenosis is present. IMPRESSIONS: 1. Mild central focal protrusion L4-5 with mild anterior thecal sac compression. No stenosis or cord contact is evident. 2. Mild broad-based disc bulge C6-7 with anterior thecal sac flattening. This is slightly greater in the left paracentral region no cord contact is evident. EXAMINATION TYPE: MR jewel/tspine/lspine wo con DATE OF EXAM: 02/28/2020 COMPARISON: None HISTORY: Neck/back pain, limited ROM, BUE/BLE radiculopathy CONTRAST: Performed utilizing 0 mL intravenous Gadavist gadolinium contrast. TECHNIQUE: Multiplanar, multiecho imaging on a 3.0 Mae magnet is performed through the thoracic spi ne. Spinal cord maintains normal signal through its visualized course. Vertebral body alignment is normal. Vertebral body heights are preserved. Disc heights are preserved. Mild central focal bulge may be present T6-T7. No cord contact is evident . Mid thoracic spine disc desiccation is present T6-7, T7-8, T8-9. No spinal canal stenosis is evident. IMPRESSIONS: 1. Mild broad-based disc bulge T6-T7 with mild anterior thecal sac contact. No spinal canal stenosis or neural foraminal stenosis is present EXAMINATION TYPE: MR cspine/tspine/lspine wo con DATE OF EXAM: 02/28/2020 COMPARISON: None HISTORY: Neck/back pain, limited ROM, BUE/BLE radiculopathy CONTRAST: 0 mL intravenous Gadavist. TECHNIQUE: Multiplanar, multisequence images of the lumbar spine were acquired. FINDINGS: Cord terminates at the T12-L1 level. L5-S1: Broad-based central disc bulge is present. Anterior thecal sac contact is present. No spinal c anal stenosis or nerve root impingement is evident. L4-L5: Mild broad-based disc bulge has anterior thecal sac and. No spinal canal stenosis. No forami nal stenosis. Mild facet hypertrophy is present read no significant posterior lateral thecal sac com pression is evident. L3-L4: No significant disc bulge or disc herniation. No spinal canal stenosis. No foraminal stenosi s. L2-L3: No significant disc bulge or disc herniation. No spinal canal stenosis. No foraminal stenosi s. L1-L2: No significant disc bulge or disc herniation. No spinal canal stenosis. No foraminal stenosi s. T12-L1: No significant disc bulge or disc herniation. No spinal canal stenosis. No foraminal stenos is. IMPRESSION: 1. Broad-based disc bulge L5-S1 with anterior thecal sac contact and exiting nerve root contact. No s tenosis or impingement is evident. 2. Mild broad-based disc bulge at L4-5 has anterior thecal sac flattening.
== END | disposition home or self-care (01) ==
LOC: RADMRIMAIN 18:26
PROVIDERS: ATTEND Nurse Practitioner Acute Care
DX: M51.26 Other intervertebral disc displacement, lumbar region (principal); M51.27 Other intervertebral disc displacement, lumbosacral region; M54.2 Cervicalgia; M54.6 Pain in thoracic spine; Z91.040 Latex allergy status
CPT/HCPCS: 72141; 72146; 72148

== ENCOUNTER 2020-05-02 16:25 | Emergency (ER) | payer OTHER ==
--- NOTE | 2020-05-02 17:07 | ED ---
Chest Pain HPI - General Chief Complaint: Chest Pain Stated Complaint: Sent by [employer] - Shoulder Pain Source: patient Mode of arrival: ambulatory Limitations: no limitations - History of Present Illness Initial Comments: 45-year-old female with past history of chronic back pain who presents to the emergency room with reported chest pain. States that for the past 2 days she has had left-sided chest pain which radiates into her left shoulder. Denies previous history of cardiac disease. No history of DVT or PE. Pain is made worse with inspiration. Has not taken any medications for her symptoms. Followed up with [employer] today who referred her to the emergency department to rule out a PE. Patient denies any lower extremity swelling. She is a smoker. No recent travel. No control use. No family history of clotting disorders. Denies fevers, chills or cough. No nausea or vomiting. No ripping or tearing physician or back. No unilateral numbness or weakness. No alleviating, precipitating or modifying factors - Related Data Home Medications Medication Instructions Recorded Confirmed Esomeprazole Magnesium [NexIUM] 40 mg PO DAILY 01/29/17 05/02/20 oxyCODONE-APAP 10-325MG [Percocet 1 tab PO BID PRN 01/29/17 05/02/20 10-325 mg] Allergies Allergy/AdvReac Type Severity Reaction Status Date / Time Iodinated Contrast Media Allergy Itching/shortness Verified 05/02/20 17:57 [Iodinated Contrast- Oral of breath and IV Dye] Review of Systems ROS Statement: Those systems with pertinent positive or pertinent negative responses have been documented in the HPI. ROS Other: All systems not noted in ROS Statement are negative. EKG Findings - EKG Comments: EKG Findings:: EKG demonstrates a sinus rhythm with a ventricular rate of 85. NM interval 144. QRS 84. QTC of 416. No acute ST segment elevations or depressions. J-point elevation in the inferior leads. No reciprocal changes Past Medical History Past Medical History: GERD/Reflux Additional Past Medical History / Comment(s): chronic back pain- pt recieving infusions and rule out MS. History of Any Multi-Drug Resistant Organisms: C-DIFF Date of last positivie culture/infection: 2014 MDRO Source:: stool Past Surgical History: Breast Surgery, Tonsillectomy Additional Past Surgical History / Comment(s): lumpectomy Past Anesthesia/Blood Transfusion Reactions: No Reported Reaction Past Psychological History: No Psychological Hx Reported Smoking Status: Current every day smoker Past Alcohol Use History: Occasional Past Drug Use History: None Reported - Past Family History Father Family Medical History: Diabetes Mellitus Additional Family Medical History / Comment(s): heart disease. at 22 from car accident. Mother Family Medical History: No Reported History General Exam Limitations: no limitations Course Vital Signs 05/02/20 05/02/20 16:26 18:50 Temperature 98.4 F 97.9 F Pulse Rate 97 74 Respiratory 20 18 Rate Blood Pressure 122/81 117/88 O2 Sat by Pulse 98 98 Oximetry Chest Pain MDM - MDM Upon arrival patient is placed into room 8. A thorough history and physical exam was performed. IV is established. Laboratories is a conducted. Patient is pretreated for her iodine ALLERGY. Laboratory studies are reviewed by myself. Troponin is negative. CT is performed which does demonstrate some apical blebs. No pulmonary embolism. Results are discussed the patient. Did recommend hospitalization for chest pain for which the patient refused. Risks are discussed the patient. She is alert, oriented and capable of making his own decisions on her own. Patient will be discharged home to follow up with primary care doctor in 2-4 days. Did recommend a full cardiac workup which the patient understood and agreed to. Return to the emergency room for any new or worsening symptoms. Patient was discharged home in stable condition Disposition Clinical Impression: Chest pain Disposition: HOME SELF-CARE Condition: Stable Instructions (If sedation given, give patient instructions): Chest Pain (ED) Additional Instructions: You need to follow up with your primary care doctor within 2-4 days. I recommend echo and Holter monitoring. Return to the emergency room for any new or worsening symptoms Is patient prescribed a controlled substance at d/c from ED?: No Referrals: Vahid Griffin DO [Primary Care Provider] - 1-2 days Time of Disposition: 19:29
[2020-05-02 17:28] LABS: Basophils # (A) 0.1 k/uL (0-0.2); Basophils % (A) 1 %; Eosinophils # (A) 0.5 k/uL (0-0.7); Eosinophils % (A) 5 %; HCT 47.1 % (34.0-46.0); HGB 16.3 gm/dL (11.4-16.0); Lymphocytes % (A) 28 %; MCH 29.9 pg (25.0-35.0); MCHC 34.5 g/dL (31.0-37.0); MCV 86.6 fL (80.0-100.0); Mean Platelet Volume 6.8; Monocytes # (A) 0.6 k/uL (0-1.0); Monocytes % (A) 6 %; Neutrophils # (A) 6.4 k/uL (1.3-7.7); Neutrophils % (A) 60 %; Platelet Count 285 k/uL (150-450); RBC 5.44 m/uL (3.80-5.40); RDW 12.6 % (11.5-15.5); WBC 10.8 k/uL (3.8-10.6)
[2020-05-02] MEDS ORDERED: FAMOTIDINE 20 MG/2 ML VIAL IV STA (17:35)
[2020-05-02] MEDS ORDERED: diphenhydrAMINE 50 MG/ML 1 ML VIAL IVP STA (17:35)
[2020-05-02] MEDS ORDERED: methylPREDNISolone SOD SUCCI 125 MG/2 ML VIAL IV STA (17:35)
[2020-05-02 17:38] LABS: ALT 34 U/L (4-34); AST 31 U/L (14-36); African American GFR (CKD) >90 (>60 ml/min/1.73 sqM); Albumin 3.9 g/dL (3.5-5.0); Alkaline Phosphatase 51 U/L (38-126); Anion Gap 8 mmol/L; Blood Urea Nitrogen 14 mg/dL (7-17); Calcium 9.1 mg/dL (8.4-10.2); Carbon Dioxide 23 mmol/L (22-30); Chloride 104 mmol/L (98-107); Glucose 110 mg/dL (74-99); Magnesium 2.1 mg/dL (1.6-2.3); Non-African American GFR(CKD) >90 (>60 ml/min/1.73 sqM); Potassium 3.7 mmol/L (3.5-5.1); Sodium 135 mmol/L (137-145); Total Bilirubin 0.6 mg/dL (0.2-1.3); Total Protein 6.9 g/dL (6.3-8.2)
[2020-05-02 17:46] LABS: D-Dimer 0.33 mg/L FEU (<0.60); INR 0.9 (<1.2); Partial Thromboplastin Time 23.9 sec (22.0-30.0); Prothrombin Time 10.1 sec (9.0-12.0)
--- NOTE | 2020-05-02 18:35 | CT ---
EXAMINATION TYPE: CT chest angio for PE DATE OF EXAM: 05/02/2020 COMPARISON: 01/29/2017. HISTORY: chest pain CT DLP: 328.8 mGycm Automated exposure control for dose reduction was used. CONTRAST: CT Chest for pulmonary embolism performed with with IV Contrast, patient injected with 80cc mL of Iso manny 370. Coronal, sagittal and MIPS reformats were generated and reviewed. FINDINGS: LUNGS: The lungs are grossly clear, there is no concerning parenchymal mass or nodule identified. T here is no pleural effusion or pneumothorax seen. The tracheobronchial tree is patent. There is mild biapical blebs. MEDIASTINUM: There is satisfactory enhancement of the pulmonary artery and its branches, there is no CT evidence for pulmonary embolism. There are no greater than 1 cm hilar or mediastinal lymph nodes. No pericardial effusion is seen. OTHER: No additional significant abnormality is seen. IMPRESSION: No acute PE or other cardiopulmonary abnormality.
[2020-05-02 18:51] VITALS: BP 117/88; PULSE 74; RESP 18; TEMP 97.9
== END 2020-05-02 19:42 | disposition home or self-care (01) ==
LOC: EC 16:25
DX: R07.9 Chest pain, unspecified (principal); M25.512 Pain in left shoulder; F17.200 Nicotine dependence, unspecified, uncomplicated; K21.9 Gastro-esophageal reflux disease without esophagitis; Z79.899 Other long term (current) drug therapy; Z90.89 Acquired absence of other organs; Z91.041 Radiographic dye allergy status
CPT/HCPCS: 36415; 93005; 85379; 83880; 80053; 83735; 84484; 85025; 85610; 85730; 71275; 99285; 96374; 96375 ×2; J1200; J2930; Q9967

== ENCOUNTER → 2020-09-07 | Outpatient (CLI) | payer OTHER ==
--- NOTE | 2020-09-08 10:13 | MM ---
Reason for exam: screening (asymptomatic). Last mammogram was performed 1 year ago. History: Family history of breast cancer in maternal aunt and breast cancer in paternal grandmother. Benign excisional biopsy of the right breast, 2016. Took hormonal contraceptives for 12 years beginning at age 18. Physical Findings: A clinical breast exam by your physician is recommended on an annual basis and results should be correlated with mammographic findings. MG 3D Screening Mammo W/Cad Bilateral CC and MLO view(s) were taken. Prior study comparison: September 05, 2019, bilateral MG 3d work up w/cad [facility]. August 15, 2019, bilateral MG 3d screening mammo w/cad. The breast tissue is heterogeneously dense. This may lower the sensitivity of mammography. ASSESSMENT: Negative, BI-RAD 1 RECOMMENDATION: Routine screening mammogram of both breasts in 1 year.
== END | disposition home or self-care (01) ==
LOC: RADMAMWWP 07:24
PROVIDERS: ATTEND Obstetrics & Gynecology
DX: Z12.31 Encounter for screening mammogram for malignant neoplasm of breast (principal); Z80.3 Family history of malignant neoplasm of breast
CPT/HCPCS: 77063; 77067

== ENCOUNTER → 2020-09-07 | Outpatient (CLI) | payer OTHER ==
[2020-09-07 11:35] LABS: Basophils # (A) 0.06 X 10*3/uL (0.00-0.10); Basophils % (A) 0.8 %; Eosinophils # (A) 0.26 X 10*3/uL (0.04-0.35); Eosinophils % (A) 3.6 %; HCT 43.2 % (37.2-46.3); HGB 14.4 g/dL (12.0-15.0); Lymphocytes % (A) 34.6 %; MCH 29.6 pg (27.0-32.0); MCHC 33.3 g/dL (32.0-37.0); MCV 88.7 fL (80.0-97.0); Mean Platelet Volume 9.2 fL (9.5-12.2); Monocytes % (A) 8.3 %; Neutrophils # (A) 3.76 X 10*3/uL (1.80-7.70); Neutrophils % (A) 52.1 %; Platelet Count 281 X 10*3/uL (140-440); RBC 4.87 X 10*6/uL (4.10-5.20); RDW 12.7 % (11.5-14.5); WBC 7.22 X 10*3/uL (4.50-10.00)
[2020-09-07 12:59] LABS: % Iron Saturation 29.52 (12.00-45.00); ALT 24 U/L (8-44); AST 18 U/L (13-35); African American GFR (CKD) 90.8 (60.0-200.0); Albumin/Globulin Ratio 1.96 (1.60-3.17); Alkaline Phosphatase 69 U/L (41-126); Amylase 53 U/L (23-121); BUN/Creat Ratio 13.33 Ratio (12.00-20.00); C Reactive Protein <0.4 mg/dL (0.0-0.8); Calcium 9.4 mg/dL (8.7-10.3); Carbon Dioxide 26.8 mmol/L (21.6-31.8); Chloride 105 mmol/L (96-109); Globulin 2.3 g/dL (1.6-3.3); Glucose 105 mg/dL (70-110); Iron 98 ug/dL (50-170); Non-African American GFR(CKD) 78.3 (60.0-200.0); Potassium 4.1 mmol/L (3.5-5.5); Sodium 138 mmol/L (135-145); Total Bilirubin 0.4 mg/dL (0.3-1.2); Total Iron Binding Capacity 332 ug/dL (228-460); Total Protein 6.8 g/dL (6.2-8.2)
[2020-09-07 15:02] LABS: Erythrocyte Sedimentation Rate 6 mm/Hr (0-20)
== END ==
LOC: LABWHC1 07:54
PROVIDERS: ATTEND Nurse Practitioner Acute Care
DX: E55.9 Vitamin D deficiency, unspecified (principal); E53.9 Vitamin B deficiency, unspecified; M79.10 Myalgia, unspecified site; R53.83 Other fatigue
CPT/HCPCS: 36415; 80053; 82150; 82306; 82607; 83540; 83550; 84207; 84439; 84443; 84481; 85025; 85652; 86038; 86140

== ENCOUNTER 2021-02-15 03:33 | Emergency (ER) | payer OTHER ==
--- NOTE | 2021-02-15 06:51 | ED ---
URI HPI - General Chief Complaint: Upper Respiratory Infection Stated Complaint: COVID- SOB Time Seen by Provider: 02/15/21 06:17 Source: patient, RN notes reviewed Mode of arrival: ambulatory Limitations: no limitations - History of Present Illness Initial Comments: 46-year-old male presented department with chief complaint of COVID-19 positive. Patient is positive yesterday. Patient's symptoms started 2 days ago patient went to fever or chills by his cough congestion. Patient denies any nausea vomiting diarrhea constipation. Patient offers no other complaints. - Related Data Home Medications Medication Instructions Recorded Confirmed Esomeprazole Magnesium [NexIUM] 40 mg PO DAILY 01/29/17 05/02/20 oxyCODONE-APAP 10-325MG [Percocet 1 tab PO BID PRN 01/29/17 05/02/20 10-325 mg] Allergies Allergy/AdvReac Type Severity Reaction Status Date / Time Iodinated Contrast Media Allergy Itching/shortness Verified 02/15/21 03:51 [Iodinated Contrast- Oral of breath and IV Dye] Review of Systems ROS Statement: Those systems with pertinent positive or pertinent negative responses have been documented in the HPI. ROS Other: All systems not noted in ROS Statement are negative. Past Medical History Past Medical History: GERD/Reflux Additional Past Medical History / Comment(s): chronic back pain- pt recieving infusions and rule out MS. History of Any Multi-Drug Resistant Organisms: C-DIFF Date of last positivie culture/infection: 2014 MDRO Source:: stool Past Surgical History: Breast Surgery, Tonsillectomy Additional Past Surgical History / Comment(s): lumpectomy Past Anesthesia/Blood Transfusion Reactions: No Reported Reaction Past Psychological History: No Psychological Hx Reported Smoking Status: Current every day smoker Past Alcohol Use History: Occasional Past Drug Use History: None Reported - Past Family History Father Family Medical History: Diabetes Mellitus Additional Family Medical History / Comment(s): heart disease. at 22 from car accident. Mother Family Medical History: No Reported History General Exam Limitations: no limitations General appearance: alert, in no apparent distress Head exam: Present: atraumatic, normocephalic, normal inspection Eye exam: Present: normal appearance, PERRL, EOMI. Absent: scleral icterus, conjunctival injection, periorbital swelling ENT exam: Present: normal exam, normal oropharynx, mucous membranes moist Neck exam: Present: normal inspection, full ROM. Absent: tenderness, meningismus, lymphadenopathy Respiratory exam: Present: normal lung sounds bilaterally. Absent: respiratory distress, wheezes, rales, rhonchi, stridor Cardiovascular Exam: Present: regular rate, normal rhythm, normal heart sounds. Absent: systolic murmur, diastolic murmur, rubs, gallop, clicks Course Vital Signs 02/15/21 03:51 Temperature 98.5 F Pulse Rate 100 Respiratory 18 Rate Blood Pressure 117/79 O2 Sat by Pulse 96 Oximetry Medical Decision Making - Medical Decision Making Patient received monoclonal antibodies we discharged stable admission return parameters discussed. Disposition Clinical Impression: COVID-19 Disposition: HOME SELF-CARE Condition: Stable Instructions (If sedation given, give patient instructions): Coronavirus Disease 2019 (COVID-19) Additional Instructions: Please return to the Emergency Department if symptoms worsen or any other concerns. Is patient prescribed a controlled substance at d/c from ED?: No Referrals: Vahid Griffin DO [Primary Care Provider] - 1-2 days Time of Disposition: 06:50
[2021-02-15] MEDS ORDERED: CASIRIVIMAB (REGN10933) (EUA) 600 MG, IMDEVIMAB (REGN10987) (EUA) 600 MG in SODIUM CHLO... IVPB ONE (07:30)
[2021-02-15] MEDS ORDERED: SODIUM CHLORIDE 0.9% 50 ML IVPB ONE (08:00)
[2021-02-15 09:27] VITALS: BP 117/64; PULSE 77; RESP 16; TEMP 98
== END 2021-02-15 09:30 | disposition home or self-care (01) ==
LOC: EC 03:33
DX: U07.1 COVID-19 (principal); K21.9 Gastro-esophageal reflux disease without esophagitis; F17.200 Nicotine dependence, unspecified, uncomplicated; Z79.899 Other long term (current) drug therapy
CPT/HCPCS: 87635; 99283; Q0243

== ENCOUNTER → 2021-09-13 | Outpatient (CLI) | payer OTHER ==
--- NOTE | 2021-09-14 20:17 | MM ---
Reason for Exam: Screening (asymptomatic). Last screening mammogram was performed 12 month(s) ago. Patient History: Menarche at age 14. First Full-Term at age 24. Hormonal Contraceptives, starting at age 18 for 12 years. 2016, Benign Excisional Biopsy on the right side. Paternal grandmother had breast cancer at or over age 50. Maternal aunt had breast cancer. Maternal grandmother had breast cancer at or over age 50. Last menstrual period: 03/20/2018 Risk Values: Terri 5 year model risk: 1.1%. NCI Lifetime model risk: 10.5%. Prior Study Comparison: 08/15/2019 Bilateral Screening Mammogram, [facility]. 09/05/2019 Bilateral Diagnostic Mammogram, [facility]. 09/07/2020 Bilateral Screening Mammogram, [facility]. Tissue Density: The breast tissue is heterogeneously dense. This may lower the sensitivity of mammography. Findings: Analyzed By CAD. Areas of bilateral asymmetric densities remain unchanged. No significant change from prior exams. Suspect chronic excisional scar laterally on the right. Overall Assessment: Benign, BI-RAD 2 Management: Screening Mammogram of both breasts in 1 year. 1. Patient should continue monthly self breast exams. 2. A clinical breast exam by your physician is recommended on an annual basis. 3. This exam should not preclude additional follow-up of suspicious palpable abnormalities. Electronically signed and approved by: Rea Locke M.D. Radiologist
== END | disposition home or self-care (01) ==
LOC: RADMAMWWP 09:15
PROVIDERS: ATTEND Obstetrics & Gynecology
DX: Z12.31 Encounter for screening mammogram for malignant neoplasm of breast (principal)
CPT/HCPCS: 77063; 77067

== ENCOUNTER 2022-07-01 06:59 | Day surgery (SDC) | payer OTHER ==
[~2022-07-01 06:59] MED LIST: LACTATED RINGERS 1,000 ML IV SCH; LIDOCAINE 1% (10MG/ML) FOR IV START INTRADERMA PRN
[2022-07-01] MEDS ORDERED: LACTATED RINGERS 1,000 ML IV ONE (07:29)
[2022-07-01 07:42] VITALS: RESP 16; TEMP 97
[2022-07-01] MEDS ORDERED: PROPOFOL 10 MG/ML 20 ML VIAL IV ONE (08:26)
[2022-07-01] MEDS ORDERED: fentaNYL (PF) 50 MCG/ML 2 ML AMP ONE (08:26)
[2022-07-01] MEDS ORDERED: MIDAZOLAM 2 MG/2 ML VIAL ONE (08:26)
[2022-07-01] MEDS ORDERED: LIDOCAINE 2% INJ 20 MG/ML (2 ML VIAL) ONE (08:26)
--- NOTE | 2022-07-01 09:09 | P.PCN ---
Date of Procedure: 07/01/22 Procedure(s) Performed: Brief history: Patient is a pleasant 47-year-old white female scheduled for an elective upper endoscopy as well as colonoscopy as a part of evaluation of long-standing history of GERD/intermittent dysphagia to solids and rectal bleeding. Procedure performed: Esophagogastroduodenoscopy with biopsy Colonoscopy Preoperative diagnosis: Long-standing history of GERD/intermittent dysphagia to solids Intermittent rectal bleeding Anesthesia: MAC Procedure: After informed consent was obtained from the patient was brought into the endoscopy unit and IV sedation was administered by anesthesia under continuous monitoring. Initially upper endoscopy was done. The Olympus GF 160 video endoscope was inserted inserted into the mouth and esophagus intubated without any difficulty and was gradually advanced into the stomach and duodenum and carefully examined. The bulb and second part of the duodenum appeared normal. The scope was then withdrawn into the stomach adequately insufflated with air and upon careful examination the antrum mild gastritis and biopsies were done from this area. Mucosa of the body, cardia and fundus appeared normal. The scope was then withdrawn into the esophagus. The GE junction was located at 40 cm to the incisors. Small hiatal hernia noted. It appeared regular with no erythema erosions or ulcerations. Rest of the esophagus appeared normal. No evidence of esophageal stricture. Biopsies were done from the distal esophagus. Patient tolerated the procedure well. At this time the patient continued to remain sedation. Initial digital rectal examination was normal. Olympus CF 160 video colonoscope was then inserted into the rectum and gradually advanced to the cecum without any difficulty. Careful examination was performed as the scope was gradually being withdrawn. The prep was excellent. The cecum, ascending colon, transverse colon, descending colon, sigmoid colon and rectum appeared normal. Retroflexion was performed in the rectum and small internal hemorrhoids. were noted. Patient tolerated the procedure well. Impression: 1. Upper endoscopy revealed mild antral gastritis and small hiatal hernia but no evidence of esophagitis or esophageal stricture 2. Colonoscopy revealed small internal hemorrhoids but no evidence of colorectal neoplasia Recommendations: Findings of this examination were discussed with the patient as well as her family. She was advised to follow with the biopsy results. Continue with Nexium 40 mg daily but change to have our before dinnertime and follow antireflux measures. Recommend a repeat screening colonoscopy in 10 years.
[2022-07-01 09:25] VITALS: BP 128/86; PULSE 78
== END 2022-07-01 09:43 | disposition home or self-care (01) ==
LOC: ORWHC2ENDO 06:59
PROVIDERS: ATTEND Internal Medicine Gastroenterology
DX: K29.50 Unspecified chronic gastritis without bleeding (principal); K21.00 Gastro-esophageal reflux disease with esophagitis, without bleeding; K44.9 Diaphragmatic hernia without obstruction or gangrene; K64.8 Other hemorrhoids; F41.9 Anxiety disorder, unspecified; F17.210 Nicotine dependence, cigarettes, uncomplicated; Z88.0 Allergy status to penicillin; Z88.8 Allergy status to other drugs, medicaments and biological substances
CPT/HCPCS: 43239; 45378; 81025; 88305; J2250; J3010; J2704; J2001

== ENCOUNTER → 2022-09-26 | Outpatient (CLI) | payer OTHER ==
--- NOTE | 2022-09-27 19:21 | MM ---
Reason for Exam: Screening (asymptomatic). Last mammogram was performed 1 year(s) and 1 month(s) ago. Patient History: Menarche at age 14. First Full-Term at age 24. Hormonal Contraceptives, starting at age 18 for 12 years. 2016, Benign Excisional Biopsy on the right side. Paternal grandmother had breast cancer at or over age 50. Maternal aunt had breast cancer. Maternal grandmother had breast cancer at or over age 50. Risk Values: Terri 5 year model risk: 1.2%. NCI Lifetime model risk: 10.4%. Prior Study Comparison: 09/05/2019 Bilateral Diagnostic Mammogram, [facility]. 09/07/2020 Bilateral Screening Mammogram, [facility]. 09/13/2021 Bilateral MG 3D screening mammo w/cad, [facility]. Tissue Density: The breast tissue is heterogeneously dense. This may lower the sensitivity of mammography. Findings: Analyzed By CAD. Bilateral areas of asymmetric density remain unchanged when comparing against the various prior studies. There is no suspicious group of microcalcifications or new suspicious mass in either breast. Overall Assessment: Benign, BI-RAD 2 Management: Screening Mammogram of both breasts in 1 year. . Patient should continue monthly self-breast exams. A clinical breast exam by your physician is recommended on an annual basis. This exam should not preclude additional follow-up of suspicious palpable abnormalities. Note on Terri scores and lifetime risk: 1. A Terri score greater than 3% is considered moderate risk. If this is the case, consider specialist referral to assess eligibility for a risk reducing agent. 2. If overall lifetime risk for the development of breast cancer is 20% or higher, the patient may qualify for future screening with alternating mammogram and breast MRI. Electronically signed and approved by: Rea Locke M.D. Radiologist
== END | disposition home or self-care (01) ==
LOC: RADMAMWWP 10:25
PROVIDERS: ATTEND Obstetrics & Gynecology
DX: Z12.31 Encounter for screening mammogram for malignant neoplasm of breast (principal); Z80.3 Family history of malignant neoplasm of breast
CPT/HCPCS: 77063; 77067

== ENCOUNTER → 2024-02-19 | Outpatient (CLI) | payer OTHER ==
--- NOTE | 2024-02-19 08:48 | MM ---
Reason for Exam: Screening (asymptomatic). Last mammogram was performed 1 year(s) and 5 month(s) ago. Patient History: Menarche at age 14. First Full-Term at age 24. Postmenopausal. Hormonal Contraceptives, starting at age 18 for 12 years. 2016, Benign Excisional Biopsy on the right side. Paternal grandmother had breast cancer at or over age 50. Maternal aunt had breast cancer. Maternal grandmother had breast cancer at or over age 50. Risk Values: Terri 5 year model risk: 1.1%. NCI Lifetime model risk: 10.0%. Prior Study Comparison: 06/20/2013 Bilateral Screening Mammogram, [facility]. 08/15/2019 Bilateral Screening Mammogram, [facility]. 09/07/2020 Bilateral Screening Mammogram, [facility]. 09/13/2021 Bilateral MG 3D screening mammo w/cad, [facility]. 09/26/2022 Bilateral MG 3D screening mammo w/cad, [facility]. Tissue Density: The breasts are heterogeneously dense, which may obscure small masses. Findings: Analyzed By CAD. Right breast: Nothing corresponds with area of palpable abnormality in the right breast medial aspect on CC view. There is no suspicious group of microcalcifications or new suspicious mass. Left breast: There is no suspicious group of microcalcifications or new suspicious mass. Overall Assessment: Incomplete: need additional imaging evaluation, BI-RAD 0 Management: Diagnostic Breast Ultrasound of the right breast. [facility] will attempt to contact patient to return for supplemental views and ultrasound if indicated. Patient should continue monthly self-breast exams. A clinical breast exam by your physician is recommended on an annual basis. This exam should not preclude additional follow-up of suspicious palpable abnormalities. Note on Terri scores and lifetime risk: 1. A Terri score greater than 3% is considered moderate risk. If this is the case, consider specialist referral to assess eligibility for a risk reducing agent. 2. If overall lifetime risk for the development of breast cancer is 20% or higher, the patient may qualify for future screening with alternating mammogram and breast MRI. [facility], , 02/19/2024 8:43 AM. Electronically signed and approved by: Jostin Yousif DO
== END | disposition home or self-care (01) ==
LOC: RADMAMWWP 07:18
PROVIDERS: ATTEND Family Medicine
DX: Z12.31 Encounter for screening mammogram for malignant neoplasm of breast (principal); Z80.3 Family history of malignant neoplasm of breast; Z78.0 Asymptomatic menopausal state; R92.333 Mammographic heterogeneous density, bilateral breasts
CPT/HCPCS: 77063; 77067

== ENCOUNTER → 2024-02-21 | Outpatient (CLI) | payer OTHER ==
--- NOTE | 2024-02-21 14:59 | USB ---
Reason for Exam: Characterization of a palpable mass. Patient History: Menarche at age 14. First Full-Term at age 24. Postmenopausal. Hormonal Contraceptives, starting at age 18 for 12 years. 2016, Benign Excisional Biopsy on the right side. Paternal grandmother had breast cancer at or over age 50. Maternal aunt had breast cancer. Maternal grandmother had breast cancer at or over age 50. Risk Values: Terri 5 year model risk: 1.1%. NCI Lifetime model risk: 10.0%. Technique: Method: Targeted. Prior Study Comparison: 09/13/2021 Bilateral MG 3D screening mammo w/cad, [facility]. 09/26/2022 Bilateral MG 3D screening mammo w/cad, [facility]. 02/19/2024 Bilateral MG 3D screening mammo w/cad, [facility]. Findings: The area of palpable concern of the right breast, the axilla of the right breast and the retroareolar of the right breast were scanned. Targeted ultrasound medial right breast from 3:00 to 5:00 including scanning of the subareolar region and axilla. With attention to the 4:00 palpable site, no solid or cystic lesion. There is an adjacent scar from previous benign excisional biopsy. No axillary adenopathy. Overall Assessment: Benign, BI-RAD 2 Management: Screening Mammogram of both breasts in 1 year. Further clinical management of any suspicious palpable area. If any enlarging lump, the patient can be rescanned. Results were given to the patient verbally at the time of exam. [facility], , 02/21/2024 2:55 PM. Electronically signed and approved by: Rea Locke M.D. Radiologist
== END | disposition home or self-care (01) ==
LOC: RADUSWWP 14:13
PROVIDERS: ATTEND Family Medicine
DX: R92.8 Other abnormal and inconclusive findings on diagnostic imaging of breast (principal); Z78.0 Asymptomatic menopausal state; Z80.3 Family history of malignant neoplasm of breast

== ENCOUNTER → 2024-07-12 | Outpatient (CLI) | payer OTHER ==
[2024-07-12 17:13] LABS: Hepatitis C IgG Antibody Nonreactive (Nonreactive)
[2024-07-12 19:15] LABS: HIV 2 AB Non-Reactive (Non-Reactive); HIV AB P24 Non-Reactive (Non-Reactive); HIV P24 AG Non-Reactive (Non-Reactive)
== END | disposition home or self-care (01) ==
LOC: LABWHC1 11:43
PROVIDERS: ATTEND Psychiatry & Neurology Neurology
DX: S61.239A Puncture wound without foreign body of unspecified finger without damage to nail, initial encounter (principal); S61.439A Puncture wound without foreign body of unspecified hand, initial encounter; W46.1XXA Contact with contaminated hypodermic needle, initial encounter
CPT/HCPCS: 36415; 86706; 86803; 87390